=== PATIENT | female | born 1955 | race Caucasian/White ===

== ENCOUNTER 2016-07-30 13:02 | Inpatient (IN) | payer OTHER ==
[~2016-07-30] VITALS: Ht 165.1 cm; Wt 65.9 kg
[~2016-07-30 13:02] MED LIST: LEVO125T75 PO; LISI20TA11 PO; MET25 PO; METF-388 PO
[2016-07-30] MEDS ORDERED: ASPIRIN 325 MG TAB PO STA (13:31)
[2016-07-30] MEDS ORDERED: morphine 2 MG INJ IV STA (13:31)
[2016-07-30] MEDS ORDERED: ONDANSETRON 4 MG INJ IV STA (13:31)
[2016-07-30 14:01] LABS: BASOPHILS % 0.2 % (0.0-2.0); EOSINOPHILS # 0.1 10^3/ul (0.0-0.5); EOSINOPHILS % 1.1 % (0.0-7.0); HEMATOCRIT 38.2 % (37.0-47.0); HEMOGLOBIN 12.8 g/dl (12.0-16.0); MEAN CORPUSCULAR HEMOGLOBIN 28.9 pg (29.0-33.0); MEAN CORPUSCULAR HGB CONC 33.6 g/dl (32.0-37.0); MEAN CORPUSCULAR VOLUME 86.1 fl (82.0-101.0); MEAN PLATELET VOLUME 8.3 fl (7.4-10.4); MONOCYTE # 0.5 10^3/ul (0.3-0.9); MONOCYTES % 8.8 % (0.0-11.0); NEUTROPHIL # 4.1 10^3/ul (1.6-7.5); NEUTROPHILS % 71.9 % (39.0-77.0); PLATELET COUNT 296 10^3/UL (140-440); RED BLOOD COUNT 4.43 10^6/ul (4.20-5.40); RED CELL DISTRIBUTION WIDTH 19.7 % (11.5-14.5); UNCORRECTED WBC 5.8 10^3/ul (4.8-10.8); WHITE BLOOD COUNT 5.8 10^3/ul (4.8-10.8)
[2016-07-30 14:04] LABS: CONDITION 1; LH ANALYZER COMMENTS 1
--- NOTE | 2016-07-30 14:04 | RADRPT ---
PROCEDURE: XR Chest. CLINICAL INDICATION: Shortness of breath. TECHNIQUE: Single frontal chest x-ray. COMPARISON: 10/29/2015 FINDINGS: The lungs are clear. No focal opacification is seen. No pneumothorax or pleural effusion is seen. The cardiomediastinal silhouette is unremarkable. There is a mild thoracic dextroscoliosis. Other serra, the osseous structures are grossly unremarkable. IMPRESSION: No evidence of acute cardiopulmonary disease. RPTAT: JJ .Thomas Boston MD, Date Time Electronically viewed and signed by .Thomas Boston MD, on 07/30/2016 14:03 .A/
[2016-07-30 14:10] LABS: ALBUMIN 4.4 g/dl (3.3-4.9); CHLORIDE 98 mmol/L (97-110)
[2016-07-30 14:11] LABS: POTASSIUM 3.9 mmol/L (3.5-5.1); SODIUM 138 mmol/L (135-144)
[2016-07-30 14:13] LABS: ALANINE AMINOTRANSFERASE 21 IU/L (13-69); ALBUMIN/GLOBULIN RATIO 1.25; ALKALINE PHOSPHATASE 86 IU/L (42-121); ANION GAP 19 (8-16); ASPARTATE AMINO TRANSFERASE 17 IU/L (15-46); BILIRUBIN,INDIRECT 0.1 mg/dl (0-1.1); BILIRUBIN,TOTAL 0.1 mg/dl (0.2-1.3); BLOOD UREA NITROGEN 17 mg/dl (7-20); CARBON DIOXIDE 25 mmol/L (21-31); TOTAL PROTEIN 7.9 g/dl (6.1-8.1)
[2016-07-30 14:14] LABS: CALCIUM 9.7 mg/dl (8.4-10.2); GLUCOSE 138 mg/dl (70-220)
[2016-07-30 14:17] LABS: CREATINE KINASE 60 IU/L (23-200)
--- NOTE | 2016-07-30 14:20 | RADRPT ---
PROCEDURE: CT Brain without contrast. CLINICAL INDICATION: Dizziness and leaning to the left when walking. TECHNIQUE: A CT of the brain was performed on a [address] scanner utilizing axial sections from the skull base through the vertex without contrast. Coronal and sagittal reformatted i mages were obtained from the axial source images. Images were reviewed on a high-resolution PACS wor kstation. Exam CTDI = 44.88 mGy and the DLP equals 630.2 mGy-cm. One or the following dose reduction techniques were used: -Automated exposure control. -Adjustment of the mA and/or KV according to patient's size. -Use of iterative reconstruction technique. COMPARISON: None available. FINDINGS: The ventricles and cortical sulci are prominent consistent with mild age related volume loss. There are patchy areas of low attenuation within the periventricular and subcortical white matter consiste nt with minimal chronic ischemic changes secondary to small vessel disease. There is no mass effect or midline shift. There is no intracranial hemorrhage or abnormal extra-axial collection. There are a few punctate calcifications along the cortex primarily in the midline anteriorly and along the rosie face of the superior aspect of the left occipital lobe. 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 There are atherosclerotic calcifications within bilateral distal internal carotid ar teries. The calvarium is intact. There is no evidence of fracture. The frontal, ethmoid, maxillary and left sphenoid sinuses appear normal. Bilateral mastoid air cells are clear. IMPRESSION: 1. No acute intracranial abnormality identified. 2. Mild age related volume loss and minimal chronic ischemic white matter disease. 3. Cerebral atherosclerosis. 4. 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 RPTAT:AACC Physician Juan Diego Date Time Electronically viewed and signed by Physician Juan Diego on 07/30/2016 14:20 /
[2016-07-30 14:22] LABS: CK-MB 0.53 ng/ml (0.0-2.4)
[2016-07-30 14:25] LABS: TROPONIN-I < 0.010 ng/ml (0.00-0.12)
[2016-07-30 14:26] LABS: TROPONIN-I < 0.010 ng/ml (0.00-0.12)
--- NOTE | 2016-07-30 15:20 | ERA ---
ER Documentation Chief Complaint Date/Time DATE: 07/30/16 TIME: 15:14 Chief Complaint dizzy since yest, chest heaviness today HPI Patient is a 60-year-old female who reports feeling dizzy and "off balance" since yesterday. She states she feels like she is walking more towards the left side. Today she developed this chest pressure in the center of her chest which is radiating down her left arm and making her hands feel numb. The chest pressure has been constant all day. It does make her feel little short of breath. She denies any nausea, vomiting, neck pain, fever, chest congestion, rhinorrhea, sore throat, or otalgia. She denies any chest trauma, abdominal pain, swelling of her feet or hands. 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 Nothing seems to make the symptoms better or worse. The remainder of the systems are negative. ROS All systems reviewed and are negative except as per history of present illness. Medications Home Meds Reported Medications Metformin Hcl* (Metformin Hcl*) 1,000 Mg Tablet, 1000 MG PO BID, #30 TAB 10/21/15 Methotrexate* (Methotrexate*) 2.5 Mg Tab, 2.5 MG PO ONCE A WEEK , TAB 01/21/15 Levothyroxine Sodium* (Levothyroxine Sodium*) 125 Mcg Tablet, 125 MCG PO AC BREAKFAST, TAB 01/21/15 Lisinopril* (Lisinopril*) 20 Mg Tablet, 20 MG PO DAILY, TAB 01/21/15 Allergies Allergies: Coded Allergies: No Known Allergy (Unverified , 01/27/15) PMhx/Soc History of Surgery: Yes (, Appendectomy, wound debridement) Anesthesia Reaction: No Hx Neurological Disorder: No Hx Respiratory Disorders: No Hx Cardiac Disorders: Yes (HTN, HIGH CHOLESTEROL) Hx Psychiatric Problems: No Hx Miscellaneous Medical Probl: Yes (HTN, DM, hypothyroidism, RA) Hx Alcohol Use: No Hx Substance Use: No Hx Tobacco Use: No Smoking Status: Never smoker FmHx Family History: diabetes Physical Exam Vitals Vital Signs Date Time Temp Pulse Resp B/P Pulse Ox O2 Delivery O2 Flow Rate FiO2 07/30/16 14:22 68 22 122/70 100 Room Air 72 132/60 84 127/81 07/30/16 14:21 Nasal Cannula 2 07/30/16 13:40 98.7 76 14 142/69 100 Room Air 07/30/16 13:14 98.7 88 20 152/67 100 Physical Exam Const: Well-developed well-nourished female sitting on the bed in no acute distress Head: Atraumatic normocephalic Eyes: Normal Conjunctiva ENT: Normal External Ears, Nose and Mouth. Neck: Full range of motion..~ No meningismus. Resp: Clear to auscultation bilaterally Cardio: Regular rate and rhythm, no murmurs no tenderness to palpation in the chest wall Abd: Soft, non tender, non distended. Normal bowel sounds Skin: No petechiae or rashes Back: No midline or flank tenderness Ext: No cyanosis, or edema no tenderness palpation and calf negative Homans sign Neur: Awake and alert oriented 3, cranial nerves II through XII are intact, motor strength is 5 out of 5 in both upper and lower extremities, finger to nose is intact bilaterally and equal, GCS equals 15, gait was normal Psych: Normal Mood and Affect Result Diagram: 07/30/16 1338 07/30/16 1338 Results 24 hrs Laboratory Tests Test 07/30/16 13:38 07/30/16 13:41 Alanine Aminotransferase (ALT/SGPT) 21IU/L Albumin 4.4g/dl Albumin/Globulin Ratio 1.25 Alkaline Phosphatase 86IU/L Anion Gap 19 Aspartate Amino Transf (AST/SGOT) 17IU/L Basophils # 0.010^3/ul Basophils % 0.2% Blood Morphology Comment Blood Urea Nitrogen 17mg/dl Calcium Level 9.7mg/dl Carbon Dioxide Level 25mmol/L Chloride Level 98mmol/L Creatine Kinase 60IU/L Creatine Kinase Index 0.9 Creatinine 0.60mg/dl Creatinine Kinase MB (Mass) 0.53ng/ml Direct Bilirubin 0.00mg/dl Eosinophils # 0.110^3/ul Eosinophils % 1.1% Globulin 3.50g/dl Glucose Level 138mg/dl Hematocrit 38.2% Hemoglobin 12.8g/dl Indirect Bilirubin 0.1mg/dl Lymphocytes # 1.010^3/ul Lymphocytes % 18.0% Mean Corpuscular Hemoglobin 28.9pg Mean Corpuscular Hemoglobin Concent 33.6g/dl Mean Corpuscular Volume 86.1fl Mean Platelet Volume 8.3fl Monocytes # 0.510^3/ul Monocytes % 8.8% Neutrophils # 4.110^3/ul Neutrophils % 71.9% Nucleated Red Blood Cells # 0.010^3/ul Nucleated Red Blood Cells % 0.0/100WBC Platelet Count 95829^3/UL Potassium Level 3.9mmol/L Red Blood Count 4.4310^6/ul Red Cell Distribution Width 19.7% Sodium Level 138mmol/L Total Bilirubin 0.1mg/dl Total Protein 7.9g/dl Troponin I < 0.010ng/ml White Blood Count 5.810^3/ul Bedside Glucose 139mg/dL Current Medications Medications (Trade) Dose Ordered Sig/Colleen Route PRN Reason Start Time Stop Time Status Last Admin Dose Admin Aspirin (Aspirin) 325 mg ONCE STAT PO 07/30/16 13:31 07/30/16 13:34 DC 07/30/16 13:55 Morphine Sulfate (morphine) 2 mg ONCE STAT IV 07/30/16 13:31 07/30/16 13:34 DC 07/30/16 13:55 Ondansetron HCl (Zofran Inj) 4 mg ONCE STAT IV 07/30/16 13:31 07/30/16 13:34 DC 07/30/16 13:55 Procedures/MDM Medical decision making: Vertigo, CVA, TIA, chest pain, angina, pneumonia, bronchitis, chest wall pain Chest x-ray did not reveal any acute cardiopulmonary process CT the head did not reveal any acute CVA or bleed EKG: Rate/Rhythm: Normal sinus rhythm at approximately 90 bpm QRS, ST, T-waves: No changes consistent w/ acute ischemia Impression: No evidence of ischemia or arrhythmia 1518: Patient states her chest pressure is improved after the morphine. Neurologically she remains unchanged and intact. 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
[2016-07-30 16:25] LABS: INR 0.92; PROTIME 12.4 Sec (12.2-14.2)
[2016-07-30 16:26] LABS: PARTIAL THROMBOPLASTIN TIME 32.8 Sec (25.0-35.0)
[2016-07-30] MEDS ORDERED: ONDANSETRON 4 MG INJ IV PRN ×2 (16:30→20:30)
[2016-07-30] MEDS ORDERED: ACETAMINOPHEN 325 MG TAB PO PRN (16:30)
[2016-07-30 19:55] LABS: CHOL/HDL RATIO 3.6 RATIO
[2016-07-30 19:59] LABS: IRON 50 ug/dl (35-150)
[2016-07-30] MEDS ORDERED: METHOTREXATE 2.5 MG TAB PO SCH (20:00)
[2016-07-30 20:08] LABS: TOTAL IRON BINDING CAPACITY 362 ug/dl (241-421)
--- NOTE | 2016-07-30 20:14 | HP ---
Date/Time of Note Date/Time of Note DATE: 07/30/16 TIME: 19:50 Assessment/Plan VTE Prophylaxis VTE Prophylaxis Intervention: SCD's Lines/Catheters IV Catheter Type (from Nrsg): Saline Lock Assessment/Plan Assessment/Plan Chest pain r/o ACS- none at present - Cardiology consult- Dr Castañeda notified Dizziness - per cardiology - neurology consult- Dr Inman notified Diabetes Mellitus - Glycemic control - Novolog mild algorithm - Hb AIC am Hypertension Dyslipidemia Hypothyroidism Arthritis- pain PLAN - Admit to hospital - See admission orders. DW Dr MOORE HPI/ROS Admit Date/Time Admit Date/Time Hx of Present Illness dizzy since yest, chest heaviness today HPI Patient is a 60-year-old female who reports feeling dizzy and "off balance" since yesterday. She states she feels like she is walking more towards the left side. Today she developed this chest pressure in the center of her chest which is radiating down her left arm and making her hands feel numb. The chest pressure has been constant all day. It does make her feel little short of breath. She denies any nausea, vomiting, neck pain, fever, chest congestion, rhinorrhea, sore throat, or otalgia. She denies any chest trauma, abdominal pain, swelling of her feet or hands. She says she had chest pain a few years ago and was told that she had "almost had a heart attack." She has not seen a stem roller since that time however. Nothing seems to make the symptoms better or worse. The remainder of the systems are negative. ROS All systems reviewed and are negative except as per history of present illness. Medications Home Meds Reported Medications Metformin Hcl* (Metformin Hcl*) 1,000 Mg Tablet, 1000 MG PO BID, #30 TAB 10/21/15 Methotrexate* (Methotrexate*) 2.5 Mg Tab, 2.5 MG PO ONCE A WEEK , TAB 01/21/15 Levothyroxine Sodium* (Levothyroxine Sodium*) 125 Mcg Tablet, 125 MCG PO AC BREAKFAST, TAB 01/21/15 Lisinopril* (Lisinopril*) 20 Mg Tablet, 20 MG PO DAILY, TAB 01/21/15 Allergies Allergies: Coded Allergies: No Known Allergy (Unverified , 01/27/15) ROS Constitutional: other Eyes: no complaints Respiratory: no complaints Cardiovascular: lightheadedness Gastrointestinal: no complaints Genitourinary: no complaints Musculoskeletal: no complaints Skin: no complaints Neurologic: dizziness Lymphatic: no complaints Psychological: no complaints Immunologic: no complaints PMH/Family/Social Past Medical History PMhx/Soc History of Surgery: Yes (, Appendectomy, wound debridement) Anesthesia Reaction: No Hx Neurological Disorder: No Hx Respiratory Disorders: No Hx Cardiac Disorders: Yes (HTN, HIGH CHOLESTEROL) Hx Psychiatric Problems: No Hx Miscellaneous Medical Probl: Yes (HTN, DM, hypothyroidism, RA) Hx Alcohol Use: No Hx Substance Use: No Hx Tobacco Use: No Smoking Status: Never smoker FmHx Family History: diabetes Past Surgical History Past Surgical Hx: other Social History Smoking Status: Never smoker Exam/Review of Systems Vital Signs Vitals Vital Signs Date Time Temp Pulse Resp B/P Pulse Ox O2 Delivery O2 Flow Rate FiO2 07/30/16 18:50 67 18 130/78 98 Nasal Cannula 2.0 67 07/30/16 18:22 98.7 Exam Constitutional: alert, oriented, well developed Psych: nl mood/affect Head: atraumatic Eyes: EOMI, PERRL, nl sclera ENMT: nl external ears & nose Neck: non-tender Respiratory: clear to auscultation Cardiovascular: nl pulses Gastrointestinal: non-tender, soft Genitourinary - Female: nl external genitalia Musculoskeletal: nl extremities to inspection Extremities: normal pulses Neurological: nl mental status, nl speech Skin: nl turgor Lymph: nontender Labs Result Diagram: 07/30/16 1338 07/30/16 1338 HEATH ZELAYA Jul 30, 2016 20:04
[2016-07-30] MEDS: INSULIN ASPART [NOVOLOG] 3 ML PEN SC SCH (21:00)
[2016-07-30] MEDS ORDERED: GLUCOSE GEL 15 GRAM TUBE BUCCAL PRN (21:00)
[2016-07-30] MEDS ORDERED: GLUCAGON 1 MG INJ IM PRN (21:00)
[2016-07-30] MEDS ORDERED: DEXTROSE 50% 50 ML SYRINGE IV PRN ×2 (21:00)
[2016-07-30] MEDS ORDERED: GLUCOSE GEL 15 GRAM TUBE PO PRN ×2 (21:00)
[2016-07-30] MEDS: SOD CHLORIDE 0.45% 1,000 ML IV SCH (21:19)
[2016-07-30] MEDS ORDERED: PANTOPRAZOLE 40 MG INJ IV ONE (21:30)
[2016-07-30] MEDS: DOCUSATE SODIUM 100 MG CAP PO SCH (21:40)
--- NOTE | 2016-07-30 21:40 | RADRPT ---
PROCEDURE: US Carotids. CLINICAL INDICATION: bruit , dizziness TECHNIQUE: Multiple sonographic of the carotid bifurcation region and vertebral arteries were obta ined utilizing morris scale, duplex and color-flow imaging. The images were reviewed on a PACS worksta tion. COMPARISON: No prior studies are available for comparison. FINDINGS: Evaluation of the right carotid bifurcation region reveals no significant calcific atherosclerotic d isease. Evaluation of the left carotid bifurcation region reveals no significant calcific atherosclerotic di sease. There is antegrade flow within the vertebral arteries bilaterally. RIGHT CAROTID MEASUREMENTS: Common Carotid Cdlfyu24.7 (cm/sec) Internal Carotid Artery - .6 (cm/sec) Internal Carotid Artery - mid66.2 (cm/sec) Internal Carotid Artery - .4 (cm/sec) Internal Carotid/Common Carotid1.41 LEFT CAROTID MEASUREMENTS: Common Carotid Klfgvq72.5 (cm/sec) Internal Carotid Artery - xzpfryev46.7 (cm/sec) Internal Carotid Artery - mid74.1 (cm/sec) Internal Carotid Artery - naogzi06.1 (cm/sec) Internal Carotid/Common Carotid1.49 RPTAT: AA IMPRESSION: No evidence for hemodynamically significant stenosis in the bilateral internal carotid arteries - va lidated velocity measurements with angiographic measurements, velocity criteria are extrapolated fro m diameter data as defined by the Society of Radiologists in Ultrasound Consensus Conference Radiolo gy 2003; 229;340-346. This study does indirectly reference the measurement of the distal ICA diamet er as the denominator for stenosis measurement. Normal antegrade flow in the vertebral arteries bilaterally. .Tai Borrego MD, Date Time Electronically viewed and signed by .Tai Borrego MD, MD on 07/30/2016 21:39 .S/
--- NOTE | 2016-07-30 23:02 | RADRPT ---
PROCEDURE: MRI Head without contrast CLINICAL INDICATION: Dizziness TECHNIQUE: Multiplanar multi sequence imaging was obtained through the head including post gadolin ium images. COMPARISON: The CT scan of the head done earlier on the same date. The previous CT was unremarkable except for a small punctate calcification within the medial left po sterior parietal lobe. FINDINGS: The ventricles are normal in size and there is no midline shift. The sulci are mildly prominent. No intracranial bleed, mass, or extra-axial fluid collection is identified. There is a faint vascula r plus over are proximally 7 mm within the right basal ganglia following contrast administration. The brainstem appears unremarkable. There is a scant amount of pituitary tissue at the floor of the sella which is largely filled with CSF. The visualized internal auditory canals appear unremarkable and no mass is seen in either cerebellar pontine angle. There are no findings to suggest acute ischemia. Normal flow void is seen within the central cerebral vasculature. The dural sinuses appear patent. The visualized osseous elements appear unremarkable. The orbits and orbital contents appear unremarkable. The paranasal sinuses and mastoid air cells are well-aerated. IMPRESSION: 1. There is a small postcontrast blush in the right basal ganglia region over a 7 mm area suspiciou s for a small venous angioma. 2. Empty sella. 3. Otherwise, unremarkable MRI of the brain. Physician Abisai Date Time Electronically viewed and signed by Physician Abisai on 07/30/2016 23:02 /
[2016-07-31] VITALS (8 sets, daily range): BP systolic 99–132; BP diastolic 54–63; PULSE 56–73; RESP 18–20; TEMP 98.1; Ht 165.1 cm; Wt 65.9 kg
[2016-07-31 03:54] LABS: BASOPHILS % 0.5 % (0.0-2.0); EOSINOPHILS # 0.1 10^3/ul (0.0-0.5); EOSINOPHILS % 2.1 % (0.0-7.0); HEMATOCRIT 34.7 % (37.0-47.0); HEMOGLOBIN 11.6 g/dl (12.0-16.0); LYMPHOCYTES # 1.3 10^3/ul (0.8-2.9); LYMPHOCYTES % 22.8 % (15.0-51.0); MEAN CORPUSCULAR HEMOGLOBIN 28.8 pg (29.0-33.0); MEAN CORPUSCULAR HGB CONC 33.5 g/dl (32.0-37.0); MEAN CORPUSCULAR VOLUME 85.9 fl (82.0-101.0); MEAN PLATELET VOLUME 8.1 fl (7.4-10.4); MONOCYTE # 0.6 10^3/ul (0.3-0.9); MONOCYTES % 10.5 % (0.0-11.0); NEUTROPHIL # 3.6 10^3/ul (1.6-7.5); NEUTROPHILS % 64.1 % (39.0-77.0); PLATELET COUNT 247 10^3/UL (140-440); RED BLOOD COUNT 4.04 10^6/ul (4.20-5.40); RED CELL DISTRIBUTION WIDTH 19.4 % (11.5-14.5); UNCORRECTED WBC 5.6 10^3/ul (4.8-10.8); WHITE BLOOD COUNT 5.6 10^3/ul (4.8-10.8)
[2016-07-31 04:00] LABS: CONDITION 1; LH ANALYZER COMMENTS 1
[2016-07-31 04:05] LABS: CREATINE KINASE 30 IU/L (23-200)
[2016-07-31 04:06] LABS: POTASSIUM 4.1 mmol/L (3.5-5.1)
[2016-07-31 04:09] LABS: CREATININE 0.7 mg/dl (0.44-1.00)
[2016-07-31 04:16] LABS: CK-MB 0.25 ng/ml (0.0-2.4)
[2016-07-31 04:23] LABS: TROPONIN-I < 0.010 ng/ml (0.00-0.12)
[2016-07-31] MEDS ORDERED: LEVOTHYROXINE 125 MCG TAB PO SCH (07:00)
[2016-07-31] MEDS: INSULIN ASPART [NOVOLOG] 3 ML PEN SC SCH ×4 (08:00→20:35)
[2016-07-31] MEDS ORDERED: ATENOLOL 25 MG TAB PO SCH (09:00)
[2016-07-31] MEDS ORDERED: LISINOPRIL 20 MG TAB PO SCH (09:00)
[2016-07-31] MEDS ORDERED: PANTOPRAZOLE 40 MG INJ IV SCH (09:00)
[2016-07-31] MEDS ORDERED: ASPIRIN (EC) 81 MG TAB PO SCH (09:00)
[2016-07-31] MEDS: DOCUSATE SODIUM 100 MG CAP PO SCH ×2 (12:11→20:33)
[2016-07-31] MEDS: metFORMIN 500 MG TAB PO SCH ×2 (12:12→18:19)
[2016-07-31] MEDS: MECLIZINE 12.5 MG TAB PO SCH ×2 (14:25→20:33)
--- NOTE | 2016-07-31 14:43 | CONS ---
DATE OF ADMISSION: 07/30/2016 DATE OF CONSULTATION: 07/31/2016 NEUROLOGICAL CONSULTATION Thank you, Dr. Frost, for your kind referral for evaluation of dizziness. HISTORY OF PRESENT ILLNESS: The patient is a 60-year-old lady who developed a vertiginous sensation 2 days ago. The vertigo is present initially constantly, but was worse with movements. By now martina tigo is better. She has similar episode of vertigo several years ago. She denies any hearing probl ems, though she does have intermittent left-sided tinnitus which is not a new complaint for her. The patient denies any new weakness, numbness, dysarthria, dysphasia, headache, diplopia. She had C AT scan followed by MRI of the brain. MRI of the brain was done with contrast and shows possible ri ght basal ganglia, small venous angioma, otherwise negative study. Carotid ultrasound was done as w ell, shows no evidence of hemodynamically significant lesions. The patient's labs were normal, CBC, basic metabolic panel, and liver function tests. Cholesterol 188, LDL 96. CURRENT MEDICATIONS: 1. Lisinopril. 2. Pantoprazole. 3. Aspirin. 4. Atenolol. 5. Metformin. 6. Synthroid. 7. Insulin sliding scale. 8. Methotrexate. PAST MEDICAL HISTORY: Significant for diabetes, hypertension, hypothyroidism, arthritis. ALLERGIES: NONE. SOCIAL HISTORY: No alcohol, tobacco, drug use. FAMILY HISTORY: Diabetes. REVIEW OF SYSTEMS: All pertinent positives included in the above history of present illness. PHYSICAL EXAMINATION: VITAL SIGNS: Today 98.0 temperature, 77 pulse, 18 respirations, 117/60 blood pressure. GENERAL: Not in acute distress, lying in bed. HEENT: Normocephalic, atraumatic head. NECK: No carotid bruits. No thyromegaly. LUNGS: Clear to auscultation bilaterally. CARDIAC: Normal cardiac rhythm and sounds. ABDOMEN: Soft, nontender. EXTREMITIES: No cyanosis, clubbing, or edema. NEUROLOGIC: She is awake, alert, and oriented x3 with fluent speech. Cranial nerve examination claire ws intact visual rowe bilaterally. Pupils round, reactive to light from 4 to 2 mm bilaterally. E xtraocular movements intact without nystagmus. Symmetrical face. Preserved facial strength and sen sation. Tongue is in midline. Palate elevates symmetrically. Motor strength examination shows pre served bulk, strength, and tone in all extremities. Sensory examination: Diminution of perception in toe tips which is a longstanding problem, according to the patient. Deep tendon reflexes 1+ uppe r extremities, absent in lower extremities. Downgoing toes bilaterally. Coordination was preserved on [id number]-wb-sezozy testing. No dysmetria or tremor. Gait was not assessed. IMPRESSION: Vertigo with clear positional and movement related components. Similar episodes of vert igo several years ago. Normal MRI of the brain. Symptoms are consistent with benign positional martina tigo. The patient feels vertiginous right now, so I did not perform Argenta-Hallpike maneuver. The brittany ribeiro was taught how to perform Heck-Daroff maneuver as vestibular exercises at home on a daily bas is for at least a couple weeks. I will start her on meclizine, and that should be continued on an a s needed basis. From my perspective, the patient is okay to be discharged home and can follow up in the office in 2 to 4 weeks. Dictated By: ERIKA MILTON/PAU Conf#: [id number] DID#: [id number]
--- NOTE | 2016-07-31 14:46 | RADRPT ---
Echocardiogram Report Patient Name: JOEL HANEY Gender: Female Date: 1955 Study Date: 31-Jul-2016 Nursing Service Director: Elizabeth Sebastian RDCS Location: Ref. Physician: HEATH ZELAYA Quality: Good Procedures: Transthoracic echocardiogram with complete 2D, M-Mode, and doppler examination. Indications: Dizziness. 2D/M Mode Doppler Measurement Value Normal Ranges Measurement Value Normal Ranges LVIDd 2D 4.0 3.5 - 5.6 cm AV Peak Vamsi 1.2 m/sec LVIDs 2D 2.5 2.1 - 4.1 cm AV Peak PG 6.0 mmHg LVPWd 2D 0.9 0.6 - 1.1 cm LVOT Peak Vamsi 0.8 m/sec IVSd 2D 0.7 0.6 - 1.1 cm LVOT Peak PG 2.5 mmHg AoR Diam 2D 2.0 2.0 - 3.7 cm MV E Peak Vamsi 0.5 m/sec EDV 2D 71.6 cm3 MV A Peak Vamsi 0.8 m/sec ESV 2D 15.2 cm3 MV E/A 0.7 LA Dimen 2D 3.4 2.3 - 4.0 cm MV Decel Time 178 msec MV Decel [place] 3 MV E/A 0.7 Findings Left Ventricle: Normal left ventricular systolic function. Normal left ventricular cavity size. Normal left ventricular wall thickness. Ejection fraction is visually estimated at 65 %. Tissue Doppler/Mitral Doppler indices are consistent with impaired relaxation (Stage I diastolic dysfunction). Right Ventricle: Normal right ventricular size. Normal right ventricular systolic function. Left Atrium: The left atrium is normal in size. Right Atrium: The right atrium is normal in size. Mitral Valve: Mitral valve leaflets appear mildly thickened. Trace mitral regurgitation. Aortic Valve: Aortic cusps appear mildly calcified. Trace aortic valve regurgitation. Tricuspid Valve: Normal appearance and function of the tricuspid valve with trace physiologic regurgitation. Pericardium: Normal pericardium with no significant pericardial effusion. Aorta: Normal aortic root. IVC: Normal size and normal respiratory collapse consistent with normal right atrial pressure. Conclusions Normal left ventricular systolic function. Normal left ventricular cavity size. Normal left ventricular wall thickness. Ejection fraction is visually estimated at 65 %. Tissue Doppler/Mitral Doppler indices are consistent with impaired relaxation (Stage I diastolic dysfunction). Normal right ventricular size. Normal right ventricular systolic function. The left atrium is normal in size. The right atrium is normal in size. Mitral valve leaflets appear mildly thickened. Trace mitral regurgitation. Aortic cusps appear mildly calcified. Trace aortic valve regurgitation. Normal appearance and function of the tricuspid valve with trace physiologic regurgitation. Electronically Signed By: Robinson Castañeda 31-Jul-2016 14:46:04 -0800 Patient Name: JOEL HANEY Study Date: 31-Jul-2016 [id number]
--- NOTE | 2016-07-31 14:52 | CONS ---
Date/Time of Note Date/Time of Note DATE: 07/31/16 TIME: 14:49 Assessment/Plan Assessment/Plan Problems: (1) Cellulitis Status: Acute (2) Small bowel obstruction Status: Acute (3) Severe sepsis Status: Acute (4) Hyperglycemia due to type 2 diabetes mellitus Status: Acute (5) Dizziness Status: Acute (6) Diabetes Status: Acute Qualifiers: Qualified Code: E11.9 - Type 2 diabetes mellitus without complication, unspecified prison insulin use status (7) Hyperlipidemia Status: Acute Qualifiers: Qualified Code: E78.2 - Mixed hyperlipidemia (8) Chest pain Status: Acute Qualifiers: Qualified Code: R07.2 - Precordial pain (9) Hypertension Status: Acute Qualifiers: Qualified Code: I10 - Essential hypertension Additional Assessment/Plan Atypical chest pain syndrome Ruled out with acute coronary syndrome troponin is negative echocardiograph is completely normal I would consider PPI and the patient is likely noncardiac etiology Long discussion with the patient patient will go and follow-up as an outpatient may consider stress test as an outpatient no need of inpatient cardiac workup Continue neurology workup and recommendation cardiac standpoint patient can be discharged home Consultation Date/Type/Reason Admit Date/Time Date of Consultation: Jul 31, 2016 Type of Consultation: Interventional cardiac Reason for Consultation Chest pain Hx of Present Illness Patient is a 60-year-old female with no significant cardiac risk factor history who presented with right shoulder pain with some dizziness. Patient admitted for rule out acute coronary syndrome her troponin levels 3 is negative BNP is negative EKG is nonischemic right now patient is on the floor I had a long discussion with the patient patient's symptoms are very atypical in nature had echocardiography done here with ejection fraction of 65% no wall motion abnormality no significant valvular abnormality. Constitutional: no complaints Eyes: no complaints Respiratory: no complaints Cardiovascular: lightheadedness Gastrointestinal: no complaints Genitourinary: no complaints Musculoskeletal: no complaints Skin: no complaints Neurologic: dizziness Lymphatic: no complaints Psychological: nl mood/affect Immunologic: no complaints Past Surgical History Past Surgical Hx: other Social History Smoking Status: Never smoker Exam/Review of Systems Vital Signs Vitals Vital Signs Date Time Temp Pulse Resp B/P Pulse Ox O2 Delivery O2 Flow Rate FiO2 07/31/16 13:06 65 07/31/16 11:08 98.0 18 117/60 100 07/31/16 08:32 Room Air 07/31/16 06:30 2.0 07/30/16 22:14 28 Exam Constitutional: alert, oriented, well developed Psych: nl mood/affect, no complaints Head: atraumatic, normocephalic Eyes: EOMI, PERRL, nl conjunctiva, nl lids, nl sclera ENMT: nl external ears & nose, nl lips & teeth, nl nasal mucosa & septum Neck: non-tender, supple Respiratory: clear to auscultation, normal air movement Cardiovascular: nl pulses, regular rate and rhythm Gastrointestinal: nl liver, spleen, non-tender, soft Musculoskeletal: nl extremities to inspection, nl gait and stance Extremities: normal pulses 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, nl mental status, nl speech, nl strength Skin: nl turgor, No rash or lesions Lymph: nl lymph nodes Results Result Diagram: 07/31/16 0320 07/31/16 0320 Results 24 hrs Laboratory Tests Test 07/30/16 18:35 07/30/16 21:36 07/31/16 03:20 07/31/16 12:06 Cholesterol Level 188 Cholesterol/HDL Ratio 3.6 HDL Cholesterol 52 Iron Level 50 LDL Cholesterol, Calculated 96 Percent Iron Saturation 14 L Total Iron Binding Capacity 362 Triglycerides Level 201 H Bedside Glucose 104 94 Anion Gap 14 Basophils # 0.0 Basophils % 0.5 Blood Morphology Comment Blood Urea Nitrogen 17 Calcium Level 9.0 Carbon Dioxide Level 30 Chloride Level 99 Creatine Kinase 30 Creatine Kinase Index 0.8 Creatinine 0.70 Creatinine Kinase MB (Mass) 0.25 Eosinophils # 0.1 Eosinophils % 2.1 Glucose Level 108 Hematocrit 34.7 L Hemoglobin 11.6 L Lymphocytes # 1.3 Lymphocytes % 22.8 Mean Corpuscular Hemoglobin 28.8 L Mean Corpuscular Hemoglobin Concent 33.5 Mean Corpuscular Volume 85.9 Mean Platelet Volume 8.1 Monocytes # 0.6 Monocytes % 10.5 Neutrophils # 3.6 Neutrophils % 64.1 Nucleated Red Blood Cells # 0.0 Nucleated Red Blood Cells % 0.0 Platelet Count 247 Potassium Level 4.1 Red Blood Count 4.04 L Red Cell Distribution Width 19.4 H Sodium Level 139 Troponin I < 0.010 White Blood Count 5.6 Medications Medications Current Medications Lisinopril (Zestril) 20 mg DAILY PO ; Start 07/31/16 at 09:00 Ondansetron HCl 4 mg 4 mg Q6H PRN IV NAUSEA AND/OR VOMITING; Start 07/30/16 at 20:30 Sodium Chloride (1/2 NS) 1,000 ml @ 50 mls/hr Q20H IV Last administered on 21:19; Admin Dose 50 MLS/HR; Start 07/30/16 at 20:30 Docusate Sodium (Colace) 100 mg BID PO Last administered on 07/31/16 12:11; Admin Dose 100 MG; Start 07/30/16 at 21:00 Pantoprazole (Protonix Iv) 40 mg DAILY IV Last administered on 07/31/16 12:11 ; Admin Dose 40 MG; Start 07/31/16 at 09:00 Aspirin (Halfprin) 81 mg DAILY PO Last administered on 07/31/16 12:11; Admin Dose 81 MG; Start 07/31/16 at 09:00 Atenolol (Tenormin) 25 mg DAILY PO ; Start 07/31/16 at 09:00 Miscellaneous Information 1 ea NOTE XX ; Start 07/30/16 at 21:00 Glucose (Glutose) 15 gm Q15M PRN PO DECREASED GLUCOSE; Start 07/30/16 at 21:00 Glucose (Glutose) 22.5 gm Q15M PRN PO DECREASED GLUCOSE; Start 07/30/16 at 21: 00 Dextrose (D50w Syringe) 25 ml Q15M PRN IV DECREASED GLUCOSE; Start 07/30/16 at 21:00 Dextrose (D50w Syringe) 50 ml Q15M PRN IV DECREASED GLUCOSE; Start 07/30/16 at 21:00 Glucagon (Glucagen) 1 mg Q15M PRN IM DECREASED GLUCOSE; Start 07/30/16 at 21:00 Glucose (Glutose) 15 gm Q15M PRN BUCCAL DECREASED GLUCOSE; Start 07/30/16 at 21 :00 Miscellaneous Information (*Order Clarification Bulletin) MEDICATION REQUIRES CLARIFICATI... Q8H XX ; Start 07/31/16 at 10:00 Meclizine HCl (Antivert) 12.5 mg TID PO Last administered on 07/31/16 14:25; Admin Dose 12.5 MG; Start 07/31/16 at 13:00 Methotrexate (Methotrexate) 2.5 mg Tu@09 PO ; Start 08/04/16 at 09:00 ARIN PEREZ MD Jul 31, 2016 14:51
[2016-07-31] MEDS ORDERED: INFLUENZA VIRUS VACCINE 0.5 ML (DISPENSING) IM* ONE (15:30)
[2016-07-31] MEDS: SOD CHLORIDE 0.45% 1,000 ML IV SCH (16:30)
--- NOTE | 2016-07-31 21:21 | PN ---
DATE: 07/31/2016 SUBJECTIVE: Follow up on 60-year-old female who was admitted with complaints of dizziness and chest pain. The patient with history of diabetes, hypertension, hyperlipidemia, hypothyroidism, and arth ritis. The patient complains of symptoms of dizziness, otherwise denies any nausea, vomiting. OBJECTIVE: VITAL SIGNS: Temperature is 98.3, pulse 77, blood pressure 133/63, respiratory rate 18, oxygen satu ration 97% on room air. GENERAL: Well-developed, well-nourished female in no acute distress. HEENT: Head is atraumatic, normocephalic. Pupils equal, round and reactive to light and accommodat ion. Oral mucosa is pink and moist. NECK: Supple, no cervical lymphadenopathy, no thyromegaly. LUNGS: Clear bilaterally. HEART: Normal S1, S2. No murmurs, gallops, clicks, rubs noted. ABDOMEN: Round, soft, nondistended, nontender. Bowel sounds present. SKIN: There is no rash, petechiae noted. NEUROLOGIC: The patient is awake, alert and oriented x4. No focal deficits noted. Motor strength 5/5 in all extremities. ASSESSMENT AND PLAN: 1. Dizziness, rule out acute coronary syndrome. The patient is status post MRI and CT scan negativ e for any stroke. 2. Benign positional vertigo. Continue patient on meclizine. Dr. Sorto neurology consult appreciated. 3. Chest pain, rule out acute coronary syndrome. The patient awaits evaluation by Dr. Castañeda in card iology consultation. Continue to follow up his recommendations. 4. Diabetes mellitus type 2. Continue to monitor blood sugar. Continue NovoLog. 5. Hypothyroidism. Continue Synthroid. Will check TSH and T4. Will start physical therapy if symptoms resolve and if patient is cleared by consultants and physica l therapy, the patient can be discharged home tomorrow. Dictated By: RAE OWENS [employer] MAID for DENNIS DAWSNO MD SR/NTS Conf#: [id number] DID#: [id number]
[2016-07-31] MEDS ORDERED: MECLIZINE 12.5 MG TAB PO SCH (22:00)
[2016-08-04] MEDS ORDERED: METHOTREXATE 2.5 MG TAB PO SCH (09:00)
== END 2016-07-31 21:58 | disposition home or self-care (01) | DRG 149 ==
LOC: E/R 13:02 → TEL 16:31
PROVIDERS: ADMIT Internal Medicine; ATTEND Internal Medicine
DX: H81.10 Benign paroxysmal vertigo, unspecified ear (principal); E11.65 Type 2 diabetes mellitus with hyperglycemia; I10 Essential (primary) hypertension; E78.5 Hyperlipidemia, unspecified; E03.9 Hypothyroidism, unspecified; M19.90 Unspecified osteoarthritis, unspecified site; R07.89 Other chest pain
CPT/HCPCS: 36415; 70450; 70552; 71010; 80048; 80053; 80061; 82550; 82553; 82962; 83540; 84484; 85025; 85610; 85730; 90686; 93005; 93306; 93880; 96374; 96375; C9113; J1815; J2270; J2405

== ENCOUNTER 2016-10-26 15:19 | Inpatient (IN) | payer OTHER ==
[~2016-10-26] VITALS: Ht 162.6 cm; Wt 65.4 kg
[~2016-10-26 15:19] MED LIST changes: -METF-388 PO; +METF1000 PO
[2016-10-26] MEDS ORDERED: KETOROLAC 30 MG INJ IM STA (17:30)
[2016-10-26 17:48] LABS: URINE BLOOD (Dip) POC Negative (NEGATIVE)
--- NOTE | 2016-10-26 18:11 | RADRPT ---
PROCEDURE: XR Lumbar Spine. CLINICAL INDICATION: Trauma. Pain. TECHNIQUE: Three views of the lumbar spine are available for review COMPARISON: CT abdomen pelvis 10/21/2015 FINDINGS: There is a moderate approximately 50% wedge compression fracture of the L1 vertebral body, not prese nt on 10/21/2015. No other fracture is identified. There is maintenance of height of the remainder of the vertebral bodies. There is a mild levoscoliosis. Alignment is maintained; there is no spondy lolisthesis. Pedicles are intact. Mild diffuse endplate/disk space degenerative changes are identi fied. Bony mineralization is within normal limits. Soft tissues are unremarkable. IMPRESSION: 1. Moderate compression fracture of the L1 vertebral body, new since 10/21/2015. Appearance is yolanda picious for an acute fracture. 2. Mild levoscoliosis. 3. Mild multilevel degenerative changes. RPTAT: HMVK .Claude Bales MD, Date Time Electronically viewed and signed by .Claude Bales MD, on 10/26/2016 18:11 .K/
[2016-10-26] MEDS ORDERED: HYDROCODONE/APAP (5/325) TAB PO ONE (19:00)
--- NOTE | 2016-10-26 19:11 | RADRPT ---
PROCEDURE: CT Lumbar Spine. CLINICAL INDICATION: Low back pain. Trauma TECHNIQUE: The study was performed on a GE [address] scanner. Spiral axial images were obtained through the lumbar spine. Sagittal and coronal reformations were created from the ra w axial data. The images were reviewed on a PACS workstation. The CTDI vol is 17.12 mGy an the DLP i s 441.25 mGy-cm. COMPARISON: No prior studies are available for comparison. FINDINGS: The lumbar lordosis is maintained. A burst fracture of the L1 vertebral body is seen with approxima tely 25-50% height loss. Approximate 5-6 mm of retropulsion of the posterior-superior aspect of the vertebral body is seen. Compromise of the approximate third of the central canal is seen. Hemorrhag e and soft tissue swelling in the adjacent paravertebral soft tissues is seen. The remaining verteb ral body heights are normal. No other acute fracture or subluxation is seen. Multilevel endplate os teophytosis is seen. The remaining paravertebral soft tissues are unremarkable. T12-L1: Vacuum disk phenomena is seen. The disc, central canal, and neuroforamina are otherwise unr emarkable. L1-L2: The disc, central canal, and neuroforamina are unremarkable. L2-L3: The disc, central canal, and neuroforamina are unremarkable. L3-L4: A mild to moderate posterior disk bulge is seen. Ligamentum flavum thickening is seen. Mild central canal stenosis is seen. Moderate right foraminal stenosis and mild to mild left foraminal stenosis is seen. Narrowing of the lateral recesses is noted. L4-L5: Mild disk height loss is seen. A moderate posterior disk bulge is seen. Mild bilateral face t arthropathy is seen. Ligamentum flavum thickening is seen. Narrowing of the lateral recess is no vishal. Moderate central canal stenosis is seen. Moderate bilateral foraminal stenosis is seen. L5-S1: Mild posterior disk height loss is seen. A mild posterior disk bulge is seen. No significan t central canal stenosis is seen. Mild bilateral foraminal stenosis is seen. A 2 mm nonobstructing stone is seen in the lower pole right kidney. IMPRESSION: 1. L1 burst fracture with a approximately 5-6 mm of retropulsion of the posterior-superior aspect o f the vertebral body which compromises approximately 1/3 of the central canal. Further evaluation w ith an MRI of the lumbar spine is recommended. 2. Mild to moderate discogenic disease at L3-4 and L4-5. 3. Mild central canal stenosis at L3-4 with moderate central canal stenosis at L4-5. 4. 2 mm nonobstructing right renal calculus. Results were discussed with Kashmir Green at 10/26/2016 7:06:23 PM RPTAT: HPNM Porfirio Drew Physician Date Time Electronically viewed and signed by Porfirio Drew Physician on 10/26/2016 19:10 /
[2016-10-26 20:45] LABS: ADD SCAN DIFF NO
[2016-10-26 20:47] LABS: BASOPHILS % 0.7 % (0.0-2.0); EOSINOPHILS # 0.1 10^3/ul (0.0-0.5); EOSINOPHILS % 1.2 % (0.0-7.0); HEMATOCRIT 39.7 % (37.0-47.0); HEMOGLOBIN 13.7 g/dl (12.0-16.0); LYMPHOCYTES # 0.9 10^3/ul (0.8-2.9); LYMPHOCYTES % 15.6 % (15.0-51.0); MEAN CORPUSCULAR HEMOGLOBIN 30.6 pg (29.0-33.0); MEAN CORPUSCULAR HGB CONC 34.5 g/dl (32.0-37.0); MEAN CORPUSCULAR VOLUME 88.8 fl (82.0-101.0); MEAN PLATELET VOLUME 9.8 fl (7.4-10.4); MONOCYTE # 0.5 10^3/ul (0.3-0.9); MONOCYTES % 7.9 % (0.0-11.0); NEUTROPHIL # 4.3 10^3/ul (1.6-7.5); NEUTROPHILS % 74.1 % (39.0-77.0); PLATELET COUNT 265 10^3/UL (140-415); RED BLOOD COUNT 4.47 10^6/ul (4.20-5.40); RED CELL DISTRIBUTION WIDTH 12.6 % (11.5-14.5); WHITE BLOOD COUNT 5.8 10^3/ul (4.8-10.8)
[2016-10-26 20:57] LABS: PROTIME 13.2 Sec (12.2-14.2)
[2016-10-26 20:58] VITALS: TEMP 98.7
[2016-10-26 20:58] LABS: PARTIAL THROMBOPLASTIN TIME 35.2 Sec (25.0-35.0)
[2016-10-26] MEDS ORDERED: ACETAMINOPHEN 325 MG TAB PO PRN (21:00)
[2016-10-26] MEDS ORDERED: ONDANSETRON 4 MG INJ IV PRN (21:00)
--- NOTE | 2016-10-26 21:02 | RADRPT ---
PROCEDURE: XR Chest. CLINICAL INDICATION: Cough. TECHNIQUE: Portable AP view of the chest was obtained. COMPARISON: 07/30/2016 FINDINGS: The cardiomediastinal silhouette is within normal limits. The lungs are clear. There is no evidenc e for pleural effusion, pneumothorax or pulmonary vascular congestion. The osseous structures are i ntact with no evidence for acute abnormality. RPTAT:HJJR IMPRESSION: No evidence for acute intrathoracic pathology or change from 07/30/2016. Physician Zane Date Time Electronically viewed and signed by Jluis Kyle Physician on 10/26/2016 21:01 /
[2016-10-26 21:09] LABS: ANION GAP 16 (8-16); BLOOD UREA NITROGEN 16 mg/dl (7-20); CALCIUM 9.6 mg/dl (8.4-10.2); CARBON DIOXIDE 24 mmol/L (21-31); CHLORIDE 100 mmol/L (97-110); CREATININE 0.81 mg/dl (0.44-1.00); GLUCOSE 123 mg/dl (70-220); POTASSIUM 4.3 mmol/L (3.5-5.1); SODIUM 136 mmol/L (135-144)
[2016-10-26 21:23] LABS: TROPONIN-I < 0.012 ng/ml (0.00-0.12)
[2016-10-26] MEDS ORDERED: FOLI-49 PO (21:45)
[2016-10-26] MEDS ORDERED: ASCO500C7 PO (21:46)
[2016-10-26] MEDS ORDERED: HYDR200T39 PO (21:47)
[2016-10-26] MEDS ORDERED: SULF500T45 PO (21:49)
--- NOTE | 2016-10-26 22:48 | RADRPT ---
PROCEDURE: MRI lumbar spine CLINICAL INDICATION: Low back pain and follow-up L1 burst fracture. TECHNIQUE: An MRI of the lumbar spine was performed on a high resolution high definition, 3.0 Tesl a MRI scanner utilizing the following sequences: Sagittal T1 weighted, sagittal and dual echo axial T2 weighted, and sagittal T2 weighted with fat saturation. COMPARISON: CT 10/26/2016 lumbar spine FINDINGS: There is a normal lordosis of the lumbar spine. Again noted is the L1 vertebral body acute burst f racture with approximately 50% vertebral body height loss . The posterior superior vertebral body i s retropulsed 5-6 mm into the spinal canal at the T12-L1 level resulting in a mild stenosis. The re mainder of the vertebral bodies are well preserved. The intervertebral discs demonstrate disk desic cation at the L3-4 through L5-S1 levels. The conus medullaris terminates normally at the T12-L1 le diamond. The visualized paravertebral soft tissues are normal. The uterus appears heterogeneous with m ultiple nodular lesions and recommend additional imaging with pelvic ultrasound or MRI. The specifi c axial levels are as follows: T12 - L1: The intervertebral disk again demonstrates vacuum disk phenomenon at this level. At this disk level the central canal and bilateral subarticular recesses are patent. Mild bilateral neural foraminal stenosis is noted secondary to retropulsion into the spinal canal of the L1 burst fracture . At the pedicular level of L1, retropulsion of the burst fracture is noted approximately 5-6 mm. AP canal dimension at this level is 8 mm. This results in a mild central canal stenosis. L1 - L2: The intervertebral discs is normal. The central canal, subarticular recess and neural for amen are patent. Mild bilateral facet arthropathy and facet effusions are present. L2 - L3: The intervertebral discs is normal. The central canal, subarticular recess and neural for amen are patent. Mild bilateral facet arthropathy is present. L3 - L4: Disk desiccation is present with a mild to moderate broad-based disk bulge measuring 4 mm. Mild bilateral facet arthropathy and ligamentum hypertrophy is present. AP canal dimension is 9 m m. This results in a mild central canal stenosis, normal bilateral lateral recesses and moderate ri ght and mild to moderate left neural foraminal stenosis. L4 - L5: Disk desiccation is present with mild disk space height loss. A moderate 4 mm eccentric b ulge to the left is present. Superimposed on this broad-based bulge is a 4 mm central disk protrusio n. Mild bilateral facet arthropathy and ligamentum hypertrophy is present. AP canal dimension is 7 mm. These findings result in a moderate central canal stenosis, mild bilateral subarticular recess stenosis, and moderate bilateral neural foraminal stenosis. L5 - S1: Disk desiccation is present with a mild broad-based bulge and osteophyte present. A centr al 5 mm disk protrusion is present with an annular tear. Mild bilateral facet arthropathy is presen t. AP canal dimension is 9.8 mm. This results in a mild central canal stenosis, mild bilateral sub articular recess stenosis and mild bilateral neural foraminal stenosis. IMPRESSION: 1. Acute L1 vertebral body burst fracture with approximately 50% vertebral body height loss and mil d retropulsion into the spinal canal. 2. Mild central canal stenosis at the mid L1 vertebral body secondary to retropulsion of burst frac ture as described above. 3. Multilevel broad-based disk bulges at the L3-4 through L5-S1 levels with moderate central canal stenosis at L4-5 and mild at L3-4. 4. Multilevel neural foraminal stenosis at the T12-L1, L3-4 through L5-S1 levels. 5. 4 mm central disk protrusion at L4-5 superimposed on broad-based bulge. 6. Multilevel degenerative facet osteoarthropathy. 7. Uterine enlargement with multiple masses. Recommend follow-up pelvic ultrasound, CT or MRI. RPTAT: HDC .Rosemary Jaramillo MD, Date Time Electronically viewed and signed by .Rosemary Jaramillo MD, on 10/26/2016 22:48 .C/
--- NOTE | 2016-10-26 22:59 | ERA ---
ER Documentation Chief Complaint Date/Time DATE: 10/26/16 TIME: 22:57 Chief Complaint LOWER BACK PAIN X 3 DAYS RADIAITING TO LOWER ABDOMINAL S/P FALL HPI Patient is a 61-year-old female with hypertension and diabetes who presents with back pain. She had a fall 3 days ago. She has pain in the lumbar area. She has been ambulatory but it is painful. She denies incontinence. ROS All systems reviewed and are negative except as per history of present illness. Medications Home Meds Reported Medications Sulfasalazine (Azulfidine) 500 Mg Tab, 500 MG PO Q8, #90 TAB 10/26/16 Hydroxychloroquine Sulfate* (Hydroxychloroquine Sulfate*) 200 Mg Tablet, 200 MG PO BID, TAB 10/26/16 Ascorbic Acid* (Vitamin C*) 500 Mg Capsule.sa, 500 MG PO DAILY, CAP 10/26/16 Folic Acid* (Folic Acid*) 1 Mg Tablet, 1 MG PO DAILY, TAB 10/26/16 Metformin Hcl* (Metformin Hcl*) 1,000 Mg Tablet, 1000 MG PO BID, #30 TAB 10/21/15 Methotrexate* (Methotrexate*) 2.5 Mg Tab, 2.5 MG PO ONCE A WEEK , TAB 01/21/15 Levothyroxine Sodium* (Levothyroxine Sodium*) 125 Mcg Tablet, 125 MCG PO AC BREAKFAST, TAB 01/21/15 Discontinued Reported Medications Lisinopril* (Lisinopril*) 20 Mg Tablet, 20 MG PO DAILY, TAB 01/21/15 Allergies Allergies: Coded Allergies: No Known Allergy (Unverified , 10/26/16) PMhx/Soc History of Surgery: Yes (Colectomy) Anesthesia Reaction: No Hx Neurological Disorder: No Hx Respiratory Disorders: No Hx Cardiac Disorders: Yes (htn, hld, ) Hx Psychiatric Problems: No Hx Miscellaneous Medical Probl: Yes (dm, hypothyroidism, arthritis) Hx Alcohol Use: No Hx Substance Use: No Hx Tobacco Use: No Smoking Status: Never smoker FmHx Family History: diabetes Physical Exam Vitals Vital Signs Date Time Temp Pulse Resp B/P Pulse Ox O2 Delivery O2 Flow Rate FiO2 10/26/16 20:58 98.7 80 19 140/97 97 Room Air 10/26/16 15:36 98.7 61 18 169/76 99 Physical Exam Const: Mild distress secondary to pain, patient is in a wheelchair Head: Atraumatic Eyes: Normal Conjunctiva ENT: Normal External Ears, Nose and Mouth. Neck: Full range of motion..~ No meningismus. Resp: Clear to auscultation bilaterally Cardio: Regular rate and rhythm, no murmurs Abd: Soft, non tender, non distended. Normal bowel sounds Skin: No petechiae or rashes Back: Lumbar tenderness to palpation Ext: No cyanosis, or edema Neur: Awake and alert Psych: Normal Mood and Affect Result Diagram: 10/26/16201910/26/162019 Results 24 hrs Laboratory Tests Test 10/26/16 17:47 10/26/16 20:20 Bedside Urine pH (LAB) 5.5 Bedside Urine Protein (LAB) Negative Bedside Urine Glucose (UA) Negative Bedside Urine Ketones (LAB) 2+ Bedside Urine Blood Negative Bedside Urine Nitrite (LAB) Negative Bedside Urine Leukocyte Esterase (L Trace White Blood Count 5.810^3/ul Red Blood Count 4.4710^6/ul Hemoglobin 13.7g/dl Hematocrit 39.7% Mean Corpuscular Volume 88.8fl Mean Corpuscular Hemoglobin 30.6pg Mean Corpuscular Hemoglobin Concent 34.5g/dl Red Cell Distribution Width 12.6% Platelet Count 66535^3/UL Mean Platelet Volume 9.8fl Neutrophils % 74.1% Lymphocytes % 15.6% Monocytes % 7.9% Eosinophils % 1.2% Basophils % 0.7% Nucleated Red Blood Cells % 0.0/100WBC Neutrophils # 4.310^3/ul Lymphocytes # 0.910^3/ul Monocytes # 0.510^3/ul Eosinophils # 0.110^3/ul Basophils # 0.010^3/ul Nucleated Red Blood Cells # 0.010^3/ul Prothrombin Time 13.2Sec Prothrombin Time Ratio 1.0 INR International Normalized Ratio 1.00 Activated Partial Thromboplast Time 35.2Sec Sodium Level 136mmol/L Potassium Level 4.3mmol/L Chloride Level 100mmol/L Carbon Dioxide Level 24mmol/L Anion Gap 16 Blood Urea Nitrogen 16mg/dl Creatinine 0.81mg/dl Glucose Level 123mg/dl Calcium Level 9.6mg/dl Troponin I < 0.012ng/ml Current Medications Medications (Trade) Dose Ordered Sig/Colleen Route PRN Reason Start Time Stop Time Status Last Admin Dose Admin Ketorolac Tromethamine (Toradol) 30 mg ONCE STAT IM 10/26/16 17:30 10/26/16 17:32 DC 10/26/16 18:30 Acetaminophen/ Hydrocodone Bitart ([place] (5/325)) 1 tab ONCE ONCE PO 10/26/16 19:00 10/26/16 19:01 DC 10/26/16 19:04 Ondansetron HCl (Zofran Inj) 4 mg BRIDGE ORDER PRN IV NAUSEA AND/OR VOMITING 10/26/16 21:00 10/27/16 20:59 Acetaminophen (Tylenol Tab) 650 mg ER BRIDGE PRN PO MILD PAIN/FEVER 10/26/16 21:00 10/27/16 20:59 Procedures/MDM X-ray shows possible lumbar fracture per radiology. CT scan shows L1 burst fracture. MRI shows L1 burst fracture with mild retropulsion. Patient is a 61-year-old female who presents with L1 burst fracture. She had some mild retropulsion into the canal. She will need to be admitted for pain control. The patient was admitted to Dr. Frost as she has been admitted to Dr. Frost in the past. The patient will be admitted to a medical surgical bed. The patient will need IV medicines for pain control. Departure Diagnosis: Primary Impression: Back pain Qualified Code: M54.5 - Acute midline low back pain without sciatica Additional Impression: Burst fracture of lumbar vertebra Qualified Code: S32.001A - Burst fracture of lumbar vertebra, closed, initial encounter Condition: JEANNE Win MD Oct 26, 2016 22:59
[2016-10-26 23:00] VITALS: BP 162/77; PULSE 78; RESP 20; Ht 162.6 cm; Wt 65.4 kg
[2016-10-26 23:24] VITALS: BP 148/74; PULSE 76
[2016-10-27] MEDS ORDERED: GLUCOSE GEL 15 GRAM TUBE BUCCAL PRN (00:30)
[2016-10-27] MEDS ORDERED: GLUCOSE GEL 15 GRAM TUBE PO PRN ×2 (00:30)
[2016-10-27] MEDS ORDERED: DEXTROSE 50% 50 ML SYRINGE IV PRN ×2 (00:30)
[2016-10-27] MEDS ORDERED: GLUCAGON 1 MG INJ IM PRN (00:30)
[2016-10-27] MEDS: morphine 2 MG INJ IV PRN ×3 (00:58→13:37)
[2016-10-27] MEDS: ACCU-CHEK XX SCH (02:00)
[2016-10-27] MEDS ORDERED: ACCU-CHEK XX SCH (02:00)
[2016-10-27 05:05] LABS: ADD SCAN DIFF NO
[2016-10-27 05:08] LABS: BASOPHILS % 0.5 % (0.0-2.0); EOSINOPHILS # 0.1 10^3/ul (0.0-0.5); EOSINOPHILS % 2.7 % (0.0-7.0); HEMATOCRIT 36.1 % (37.0-47.0); HEMOGLOBIN 12.4 g/dl (12.0-16.0); LYMPHOCYTES # 0.8 10^3/ul (0.8-2.9); LYMPHOCYTES % 18.7 % (15.0-51.0); MEAN CORPUSCULAR HEMOGLOBIN 30.5 pg (29.0-33.0); MEAN CORPUSCULAR HGB CONC 34.3 g/dl (32.0-37.0); MEAN CORPUSCULAR VOLUME 88.7 fl (82.0-101.0); MEAN PLATELET VOLUME 9.6 fl (7.4-10.4); MONOCYTE # 0.4 10^3/ul (0.3-0.9); MONOCYTES % 9.3 % (0.0-11.0); NEUTROPHILS % 68.6 % (39.0-77.0); PLATELET COUNT 245 10^3/UL (140-415); RED BLOOD COUNT 4.07 10^6/ul (4.20-5.40); RED CELL DISTRIBUTION WIDTH 12.5 % (11.5-14.5); WHITE BLOOD COUNT 4.4 10^3/ul (4.8-10.8)
[2016-10-27 05:55] LABS: ALBUMIN 4.2 g/dl (3.3-4.9)
[2016-10-27 05:56] LABS: POTASSIUM 3.5 mmol/L (3.5-5.1)
[2016-10-27 06:01] LABS: ALBUMIN/GLOBULIN RATIO 1.16; BILIRUBIN,INDIRECT 0.6 mg/dl (0-1.1); BILIRUBIN,TOTAL 0.6 mg/dl (0.2-1.3); CALCIUM 8.9 mg/dl (8.4-10.2); CREATININE 0.61 mg/dl (0.44-1.00); TOTAL PROTEIN 7.8 g/dl (6.1-8.1)
[2016-10-27 08:03] VITALS: BP 139/74; RESP 18
[2016-10-27] MEDS: ASCORBIC ACID 500 MG TAB PO SCH (08:33)
[2016-10-27] MEDS: FOLIC ACID 1 MG TAB PO SCH (08:34)
[2016-10-27] MEDS: metFORMIN 500 MG TAB PO SCH ×2 (08:34→17:23)
[2016-10-27] MEDS: HYDROXYCHLOROQUINE 200 MG TAB PO SCH ×2 (09:03→20:37)
[2016-10-27] MEDS: LEVOTHYROXINE 125 MCG TAB PO SCH (09:03)
[2016-10-27] MEDS: SULFASALAZINE 500 MG TAB PO SCH ×3 (09:03→20:37)
[2016-10-27] MEDS: INSULIN ASPART [NOVOLOG] 3 ML PEN SC SCH ×4 (09:04→20:37)
--- NOTE | 2016-10-27 16:45 | HP ---
DATE OF ADMISSION: 10/26/2016 CHIEF COMPLAINT: Lower back pain. HISTORY OF PRESENT ILLNESS: The patient is a 61-year-old female well known to me from previous admi ssion. The patient has history of hypertension, diabetes, hypothyroidism and rheumatoid arthritis. The patient was pushing a piece of wood with some boxes on that 3 days ago, lost her balance and fe ll on her lower back. The patient came to the ER with 3 days' history of lower back pain. No repor vishal numbness, tingling in the lower extremities. No reported loss of consciousness. No reported bl adder or bowel incontinence. No reported weakness in any extremity. The patient is able to ambulat e. The patient was seen in the ER and underwent lumbar spine MRI, which revealed acute L1 vertebral body burst fracture with approximately 50% vertebral body loss. The patient also was noted to have multiple degenerative disk disease and mild degenerative changes. The patient also was incidentall y noted to have uterine fibroid, which had been present on a CT scan done in 10/2015 also. The huang ent denies any abdominal pain. No reported recent vaginal bleed. The patient denied any history of chest pain, shortness of breath. No recent history of fever or chills. No history of dysuria or h ematuria. REVIEW OF SYSTEMS: Rest of review of systems unremarkable. PAST MEDICAL HISTORY: As stated above. In addition, the patient has a history of , and al so had drainage of a subcutaneous abscess right lower leg by Dr. Palacios. History of sepsis with par tial small-bowel obstruction, status post lysis of adhesions and umbilical hernia repair, which was an incidental finding. FAMILY HISTORY: Noncontributory. SOCIAL HISTORY: No smoking, no alcohol. PHYSICAL EXAMINATION: GENERAL: The patient is conscious, awake, alert, fairly oriented. VITAL SIGNS: Temperature 98, pulse 86, respirations 18, blood pressure 139/74, O2 saturation 98% on room air. HEENT: Conjunctivae and lids normal. Oropharynx clear. NECK: Supple. No mass, no thyromegaly. CHEST: Fairly clear. No use of accessory muscles. CARDIOVASCULAR: S1, S2 normal, no murmur, gallop, or rub. ABDOMEN: Soft, nondistended, nontender. Bowel sounds plus. EXTREMITIES: No leg edema. NEUROLOGIC: The patient is awake, alert, fairly oriented with no gross focal deficit. LABORATORY DATA: WBC 4.4, hemoglobin 12.4, platelets 245. Chemistry: Sodium 138, potassium 3.5, B UN 14, creatinine 0.6, glucose 100. Hemoglobin A1c is 6.1. IMPRESSION 1. Mechanical fall with acute L1 fracture. 2. Degenerative disk disease and degenerative joint disease in the lumbar spine. 3. Diabetes mellitus. 4. Rheumatoid arthritis. 5. Hypothyroidism. PLAN: The patient admitted on medical floor. The patient will be continued on folic acid, sulfasal azine, Plaquenil, and methotrexate for rheumatoid arthritis. Continue Glucophage for diabetes and s liding scale insulin. The patient will be continued on Synthroid. We will give Tylenol, [place], and morphine for pain control. We will obtain orthopedic consult from Dr. Paige. Further recommendation s will depend on the patient's hospital course. Dictated By: DENNIS HUDSON/PAU Conf#: [id number] DID#: [id number]
[2016-10-27] MEDS: ENOXAPARIN 40 MG/0.4 ML SYG SC SCH (17:19)
[2016-10-27 20:09] VITALS: BP 121/64; RESP 18
[2016-10-27] MEDS: SENNA TAB PO SCH (22:08)
[2016-10-27] MEDS: HYDROCODONE/APAP (5/325) TAB PO PRN (22:08)
[2016-10-28] MEDS: ACCU-CHEK XX SCH (01:09)
[2016-10-28] MEDS: SULFASALAZINE 500 MG TAB PO SCH ×3 (05:05→22:04)
[2016-10-28] MEDS: HYDROCODONE/APAP (5/325) TAB PO PRN ×4 (05:05→22:03)
[2016-10-28] MEDS: LEVOTHYROXINE 125 MCG TAB PO SCH (05:05)
[2016-10-28] MEDS: SENNA TAB PO SCH ×2 (05:05→20:32)
[2016-10-28 07:26] VITALS: BP 131/65; RESP 17
[2016-10-28] MEDS: INSULIN ASPART [NOVOLOG] 3 ML PEN SC SCH ×4 (07:50→20:35)
[2016-10-28] MEDS: FOLIC ACID 1 MG TAB PO SCH (08:48)
[2016-10-28] MEDS: HYDROXYCHLOROQUINE 200 MG TAB PO SCH ×2 (08:48→20:32)
[2016-10-28] MEDS: metFORMIN 500 MG TAB PO SCH ×2 (08:48→17:51)
[2016-10-28] MEDS: ASCORBIC ACID 500 MG TAB PO SCH (08:48)
[2016-10-28] MEDS: ENOXAPARIN 40 MG/0.4 ML SYG SC SCH (08:51)
--- NOTE | 2016-10-28 16:49 | CONS ---
DATE OF ADMISSION: 10/26/2016 DATE OF CONSULTATION: 10/28/2016 ORTHOPEDIC CONSULTATION HISTORY OF PRESENT ILLNESS: The patient is a 61-year-old female who was admitted on 10/26/2016 when she came to emergency room complaining of low back pain. She had a ground level fall about 4 days ago during the course of her work, landing on her buttock. Following the fall, she was experiencing pain involving her back. She was able to ambulate herself; however, her pain has been persistent. Denies any numbness or tingling in the lower extremity. Denies any weakness involving the lower ex tremity. Denies any change in her bladder habit. However, she is experiencing constipation. PHYSICAL EXAMINATION: My examination revealed a 61-year-old female who is sitting up in a chair. S he was able to participate in history taking and physical examination. Deep tendon reflexes were no rmal and equal bilaterally. There were no obvious motor weaknesses or sensory changes involving the lumbosacral spinal nerve. Straight leg raising was negative up to 80 degrees bilaterally. There w as a mild tenderness along with the paravertebral muscle spasm at the thoracolumbar junction. Range of motion of the thoracolumbar junction was limited with pain. CT scan and the MRI scan of the lumbosacral spine revealed a compression fracture somewhat comminute d and depressed with the retroverted protrusion into the spinal canal, compromising up to about 25% of the spinal canal. There was no evidence of any fractures involving the posterior element such as a pedicle or lamina or spinous process. DIAGNOSTIC IMPRESSION: Compression fracture of the vertebral body of L1 with compression up to abou t 50% with mild to moderate retropulsion of the fracture fragments without any signs of radiculopath y. TREATMENT PLAN: 1. Immobilization and protection with C.A.S.H brace (cruciate anterior spinal hyperextension) brace 2. Ambulation with the C.A.S.H. brace with physical therapy. 3. Repeat the x-rays of the lumbosacral spine after ambulation. 4. If the patient can tolerate the ambulation with the brace on and if there are no meaningful medrano ges in the fracture alignment after ambulation, then she can be discharged for further followup care as an outpatient. Dictated By: ALISA ABREU/PAU Conf#: [id number] DID#: [id number]
--- NOTE | 2016-10-28 18:12 | PN ---
DATE: 10/28/2016 SUBJECTIVE: Follow up on acute L1 fracture. The patient continues to have significant back pain al so has been complaining of constipation and will be started on around the clock laxative. Patient d id not have any chest pain or shortness of breath. No reported weakness in lower extremities, no re ported urinary or bowel incontinence. PHYSICAL EXAMINATION: GENERAL: The patient is conscious, awake, alert. VITAL SIGNS: Temperature 98.1, pulse 70, respirations 17, blood pressure 131/65, O2 saturation 97%. PHYSICAL EXAMINATION: HEENT: No eye discharge or redness. Oropharynx clear. NECK: No mass. CHEST: Fairly clear. CARDIOVASCULAR: S1, S2 normal. No murmur. ABDOMEN: Soft, nondistended, nontender. EXTREMITIES: No leg edema. NEUROLOGIC: The patient is awake, alert, fairly oriented with no gross focal deficit. IMPRESSION: 1. Left L1 fracture. 2. Diabetes. 3. Rheumatoid arthritis. 4. Hypothyroidism. PLAN: The patient will be continued on current medication. Will add Mobic 50 mg once a day. Dictated By: DENNIS HUDSON/PAU Conf#: [id number] DID#: [id number]
[2016-10-28] MEDS: MELOXICAM 15 MG TAB PO SCH (18:43)
[2016-10-28] MEDS: BISACODYL (EC) 5 MG TAB PO SCH (18:43)
[2016-10-28 19:35] VITALS: BP 131/67; RESP 18
[2016-10-29] MEDS: ACCU-CHEK XX SCH (02:00)
[2016-10-29] MEDS: SULFASALAZINE 500 MG TAB PO SCH ×3 (05:51→21:57)
[2016-10-29] MEDS: LEVOTHYROXINE 125 MCG TAB PO SCH (05:51)
[2016-10-29] MEDS: HYDROCODONE/APAP (5/325) TAB PO PRN ×5 (05:52→23:32)
[2016-10-29] MEDS: INSULIN ASPART [NOVOLOG] 3 ML PEN SC SCH ×4 (07:50→21:00)
[2016-10-29 08:02] VITALS: BP 139/68; RESP 18
[2016-10-29] MEDS: BISACODYL (EC) 5 MG TAB PO SCH (08:28)
[2016-10-29] MEDS: metFORMIN 500 MG TAB PO SCH ×2 (08:28→17:55)
[2016-10-29] MEDS: HYDROXYCHLOROQUINE 200 MG TAB PO SCH ×2 (08:29→20:51)
[2016-10-29] MEDS: SENNA TAB PO SCH ×2 (08:29→20:50)
[2016-10-29] MEDS: FOLIC ACID 1 MG TAB PO SCH (08:29)
[2016-10-29] MEDS: MELOXICAM 15 MG TAB PO SCH (08:29)
[2016-10-29] MEDS: ASCORBIC ACID 500 MG TAB PO SCH (08:30)
[2016-10-29] MEDS: ENOXAPARIN 40 MG/0.4 ML SYG SC SCH (08:34)
[2016-10-29] MEDS: ONDANSETRON 4 MG INJ IV PRN (14:00)
--- NOTE | 2016-10-29 14:44 | PN ---
Date/Time of Note Date/Time of Note DATE: 10/29/16 TIME: 14:42 Assessment/Plan Lines/Catheters IV Catheter Type (from Nrsg): Saline Lock Urinary Cath still in place: No Assessment/Plan Assessment/Plan 1. Left L1 fracture. - Per ortho - Mobic 50 mg once a day. - fu lumbar X RAY 2. Diabetes. - Glycemic control 3. Rheumatoid arthritis. 4. Hypothyroidism. RAJANI Frost Subjective 24 Hr Interval Summary Free Text/Dictation 14;30- pt is off floor, in radiology for lumbar xray Exam/Review of Systems Vital Signs Vitals Vital Signs Date Time Temp Pulse Resp B/P Pulse Ox O2 Delivery O2 Flow Rate FiO2 10/29/16 08:02 98.1 74 18 139/68 97 10/26/16 23:00 Room Air Intake and Output 10/28/16 10/28/16 10/29/16 15:00 23:00 07:00 Intake Total 600 ml 720 ml Balance 600 ml 720 ml Results Result Diagram: 10/27/16 0450 10/27/16 0450 Results 24 hrs Laboratory Tests Test 10/28/16 17:37 10/28/16 20:34 10/29/16 08:21 10/29/16 11:51 Bedside Glucose 125 163 137 109 Medications Medications Current Medications Morphine Sulfate (morphine) 2 mg Q4H PRN IV PAIN Last administered on 13:37; Admin Dose 2 MG; Start 10/27/16 at 00:00 Ondansetron HCl (Zofran Inj) 4 mg Q6H PRN IV NAUSEA AND/OR VOMITING Last administered on 10/29/16 14:00; Admin Dose 4 MG; Start 10/27/16 at 00:00 Diagnostic Test (Pha) (Accu-Chek) 1 ea 02 XX ; Start 10/27/16 at 02:00 Ascorbic Acid (Vitamin C) 500 mg DAILY PO Last administered on 10/29/16 08:30 ; Admin Dose 500 MG; Start 10/27/16 at 09:00 Folic Acid (Folic Acid) 1 mg DAILY PO Last administered on 10/29/16 08:29; Admin Dose 1 MG; Start 10/27/16 at 09:00 Hydroxychloroquine Sulfate (Plaquenil) 200 mg BID PO Last administered on 08:29; Admin Dose 200 MG; Start 10/27/16 at 09:00 Methotrexate (Methotrexate) 2.5 mg Fr@09 PO ; Start 10/30/16 at 09:00 Sulfasalazine (Azulfidine) 500 mg Q8 PO Last administered on 10/29/16 14:00; Admin Dose 500 MG; Start 10/27/16 at 06:00 Miscellaneous Information 1 ea NOTE XX ; Start 10/27/16 at 00:30 Glucose (Glutose) 15 gm Q15M PRN PO DECREASED GLUCOSE; Start 10/27/16 at 00:30 Glucose (Glutose) 22.5 gm Q15M PRN PO DECREASED GLUCOSE; Start 10/27/16 at 00: 30 Dextrose (D50w Syringe) 25 ml Q15M PRN IV DECREASED GLUCOSE; Start 10/27/16 at 00:30 Dextrose (D50w Syringe) 50 ml Q15M PRN IV DECREASED GLUCOSE; Start 10/27/16 at 00:30 Glucagon (Glucagen) 1 mg Q15M PRN IM DECREASED GLUCOSE; Start 10/27/16 at 00:30 Glucose (Glutose) 15 gm Q15M PRN BUCCAL DECREASED GLUCOSE; Start 10/27/16 at 00 :30 Acetaminophen (Tylenol Tab) 500 mg Q4H PRN PO PAIN AND OR ELEVATED TEMP; Start 10/27/16 at 16:30 Acetaminophen/ Hydrocodone Bitart ([place] (5/325)) 1 tab Q4H PRN PO PAIN LEVEL 4 -6 Last administered on 10/29/16 14:00; Admin Dose 1 TAB; Start 10/27/16 at 16: 30 Enoxaparin Sodium (Lovenox) 40 mg DAILY SC Last administered on 10/29/16 08:34 ; Admin Dose 40 MG; Start 10/27/16 at 16:30 Senna (Senokot) 2 tab BID PO Last administered on 10/29/16 08:29; Admin Dose 2 TAB; Start 10/27/16 at 21:00 Bisacodyl (Dulcolax) 5 mg DAILY PO Last administered on 10/29/16 08:28; Admin Dose 5 MG; Start 10/28/16 at 18:00 Meloxicam (Mobic) 15 mg DAILY PO Last administered on 10/29/16 08:29; Admin Dose 15 MG; Start 10/28/16 at 18:30 HEATH ZELAYA Oct 29, 2016 14:44
--- NOTE | 2016-10-29 17:14 | RADRPT ---
PROCEDURE: XR Lumbar Spine. CLINICAL INDICATION: Back pain. TECHNIQUE: Three views. AP, lateral and cone-down lateral view of the lumbar spine were obtained. COMPARISON: 10/26/2016. FINDINGS: There is a moderate approximately 50% wedge compression fracture of the L1 vertebral body, unchanged from 10/26/2016. No other fracture is identified. There is maintenance of height of the remainder o f the vertebral bodies. There is a mild levoscoliosis. Alignment is maintained; there is no spondylo listhesis. Pedicles are intact. Mild diffuse endplate/disk space degenerative changes are identified . Bony mineralization is within normal limits. Soft tissues are unremarkable. IMPRESSION: 1. Approximately a 50% wedge compression fracture of L1 vertebral body, similar to the prior study from 10/26/2016. 2. Mild levoscoliosis. 3. Mild degenerative changes throughout. 4. No other new abnormality. RPTAT: QQ .Kashmir Pollack MD, MD Date Time Electronically viewed and signed by .Kashmir Pollack MD, on 10/29/2016 17:14 .R/
--- NOTE | 2016-10-29 17:15 | RADRPT ---
PROCEDURE: XR Sacrum and Coccyx. CLINICAL INDICATION: Sacrum and coccyx pain. TECHNIQUE: 3 views. AP, AP oblique, and lateral views of the sacrum and coccyx were performed. COMPARISON: No prior studies are available for comparison. FINDINGS: There is normal sacral and coccygeal mineralization and alignment. No fracture or subluxation is see n. The sacroiliac joints appear normal. The soft tissues are unremarkable. IMPRESSION: 1. Unremarkable images of the sacrum and coccyx. RPTAT: QQ .Kashmir Pollack MD, MD Date Time Electronically viewed and signed by .Kashmir Pollack MD, on 10/29/2016 17:15 .R/
[2016-10-29] MEDS: LACTULOSE 30ML CUP PO SCH ×2 (18:00→23:33)
[2016-10-29 19:18] VITALS: BP 179/84; RESP 18
[2016-10-30] MEDS: ACCU-CHEK XX SCH (02:00)
[2016-10-30] MEDS: HYDROCODONE/APAP (5/325) TAB PO PRN ×3 (04:05→21:41)
[2016-10-30] MEDS: SULFASALAZINE 500 MG TAB PO SCH ×3 (06:32→21:42)
[2016-10-30] MEDS: LACTULOSE 30ML CUP PO SCH ×3 (06:32→17:34)
[2016-10-30] MEDS: LEVOTHYROXINE 125 MCG TAB PO SCH (06:32)
[2016-10-30 07:00] VITALS: BP 193/81; RESP 18
[2016-10-30] MEDS: INSULIN ASPART [NOVOLOG] 3 ML PEN SC SCH ×4 (07:50→21:00)
[2016-10-30] MEDS: morphine 2 MG INJ IV PRN (08:24)
[2016-10-30] MEDS: ASCORBIC ACID 500 MG TAB PO SCH (08:27)
[2016-10-30] MEDS: SENNA TAB PO SCH ×2 (08:27→21:41)
[2016-10-30] MEDS: HYDROXYCHLOROQUINE 200 MG TAB PO SCH ×2 (08:27→21:42)
[2016-10-30] MEDS: FOLIC ACID 1 MG TAB PO SCH (08:27)
[2016-10-30] MEDS: BISACODYL (EC) 5 MG TAB PO SCH (08:27)
[2016-10-30] MEDS: MELOXICAM 15 MG TAB PO SCH (08:28)
[2016-10-30] MEDS: METHOTREXATE 2.5 MG TAB PO SCH (08:29)
[2016-10-30] MEDS: metFORMIN 500 MG TAB PO SCH ×2 (08:32→17:34)
[2016-10-30] MEDS: ENOXAPARIN 40 MG/0.4 ML SYG SC SCH (08:37)
[2016-10-30 09:14] VITALS: BP 137/71; PULSE 80
--- NOTE | 2016-10-30 15:53 | PN ---
Date/Time of Note Date/Time of Note DATE: 10/30/16 TIME: 15:49 Assessment/Plan VTE Prophylaxis VTE Prophylaxis Intervention: other Lines/Catheters IV Catheter Type (from Nrsg): Saline Lock Urinary Cath still in place: No Assessment/Plan Assessment/Plan 1. Left L1 fracture. - Per ortho- no surgical intervention needed - Mobic 50 mg once a day. 2. Diabetes. - Glycemic control 3. Rheumatoid arthritis. - On Methotrexate 4. Hypothyroidism. - synthyroid 125 mcg RAJNAI Frost Subjective 24 Hr Interval Summary Free Text/Dictation Nad, up in chair, feels better, per patient she is able to walk to bathroom using her walker, back brace noted, seems comfortable. No surgical intervention needed per ortho. dw staff. Eyes: no complaints ENT: no complaints Respiratory: no complaints Cardiovascular: no complaints Gastrointestinal: no complaints Genitourinary: no complaints Musculoskeletal: back pain Skin: no complaints Neurologic: no complaints Endocrine: no complaints Lymphatic: no complaints Exam/Review of Systems Vital Signs Vitals Vital Signs Date Time Temp Pulse Resp B/P Pulse Ox O2 Delivery O2 Flow Rate FiO2 10/30/16 09:14 80 137/71 10/30/16 07:00 98.2 18 98 10/26/16 23:00 Room Air Intake and Output 10/29/16 10/29/16 10/30/16 15:00 23:00 07:00 Intake Total 700 ml 480 ml Balance 700 ml 480 ml Exam Constitutional: alert, oriented, well developed Psych: nl mood/affect Head: atraumatic Eyes: EOMI ENMT: nl external ears & nose Neck: non-tender Respiratory: clear to auscultation Cardiovascular: nl pulses Gastrointestinal: non-tender, soft Musculoskeletal: nl extremities to inspection, other (back brace noted- intact. patient seems comfortable.) Extremities: normal pulses Neurological: nl mental status, nl speech Skin: nl turgor Lymph: nontender Results Result Diagram: 10/27/1644910/27/16449 Results 24 hrs Laboratory Tests Test 10/29/16 18:40 10/29/16 20:58 10/30/16 07:51 10/30/16 11:35 Bedside Glucose 175 131 116 116 Medications Medications Current Medications Morphine Sulfate (morphine) 2 mg Q4H PRN IV PAIN Last administered on t 08:24; Admin Dose 2 MG; Start 10/27/16 at 00:00 Ondansetron HCl (Zofran Inj) 4 mg Q6H PRN IV NAUSEA AND/OR VOMITING Last administered on 10/29/16 14:00; Admin Dose 4 MG; Start 10/27/16 at 00:00 Diagnostic Test (Pha) (Accu-Chek) 1 ea 02 XX ; Start 10/27/16 at 02:00 Ascorbic Acid (Vitamin C) 500 mg DAILY PO Last administered on 10/30/16 08:27 ; Admin Dose 500 MG; Start 10/27/16 at 09:00 Folic Acid (Folic Acid) 1 mg DAILY PO Last administered on 10/30/16 08:27; Admin Dose 1 MG; Start 10/27/16 at 09:00 Hydroxychloroquine Sulfate (Plaquenil) 200 mg BID PO Last administered on 08:27; Admin Dose 200 MG; Start 10/27/16 at 09:00 Methotrexate (Methotrexate) 2.5 mg Fr@09 PO Last administered on 10/30/16 08: 29; Admin Dose 2.5 MG; Start 10/30/16 at 09:00 Sulfasalazine (Azulfidine) 500 mg Q8 PO Last administered on 10/30/16 15:47; Admin Dose 500 MG; Start 10/27/16 at 06:00 Miscellaneous Information 1 ea NOTE XX ; Start 10/27/16 at 00:30 Glucose (Glutose) 15 gm Q15M PRN PO DECREASED GLUCOSE; Start 10/27/16 at 00:30 Glucose (Glutose) 22.5 gm Q15M PRN PO DECREASED GLUCOSE; Start 10/27/16 at 00: 30 Dextrose (D50w Syringe) 25 ml Q15M PRN IV DECREASED GLUCOSE; Start 10/27/16 at 00:30 Dextrose (D50w Syringe) 50 ml Q15M PRN IV DECREASED GLUCOSE; Start 10/27/16 at 00:30 Glucagon (Glucagen) 1 mg Q15M PRN IM DECREASED GLUCOSE; Start 10/27/16 at 00:30 Glucose (Glutose) 15 gm Q15M PRN BUCCAL DECREASED GLUCOSE; Start 10/27/16 at 00 :30 Acetaminophen (Tylenol Tab) 500 mg Q4H PRN PO PAIN AND OR ELEVATED TEMP; Start 10/27/16 at 16:30 Acetaminophen/ Hydrocodone Bitart ([place] (5/325)) 1 tab Q4H PRN PO PAIN LEVEL 4 -6 Last administered on 10/30/16 15:47; Admin Dose 1 TAB; Start 10/27/16 at 16: 30 Enoxaparin Sodium (Lovenox) 40 mg DAILY SC Last administered on 10/30/16 08:37 ; Admin Dose 40 MG; Start 10/27/16 at 16:30 Senna (Senokot) 2 tab BID PO Last administered on 10/30/16 08:27; Admin Dose 2 TAB; Start 10/27/16 at 21:00 Bisacodyl (Dulcolax) 5 mg DAILY PO Last administered on 10/30/16 08:27; Admin Dose 5 MG; Start 10/28/16 at 18:00 Meloxicam (Mobic) 15 mg DAILY PO Last administered on 10/30/16 08:28; Admin Dose 15 MG; Start 10/28/16 at 18:30 Lactulose (Enulose) 20 gm Q6 PO Last administered on 10/30/16 11:51; Admin Dose 20 GM; Start 10/29/16 at 18:00 HEATH ZELAYA Oct 30, 2016 15:53
[2016-10-30 19:57] VITALS: BP 132/69; RESP 18
[2016-10-31] MEDS: ACCU-CHEK XX SCH (02:00)
[2016-10-31 05:50] LABS: ADD SCAN DIFF NO
[2016-10-31 05:53] LABS: BASOPHILS % 0.5 % (0.0-2.0); EOSINOPHILS # 0.1 10^3/ul (0.0-0.5); EOSINOPHILS % 3.4 % (0.0-7.0); HEMOGLOBIN 10.9 g/dl (12.0-16.0); LYMPHOCYTES % 25.5 % (15.0-51.0); MEAN CORPUSCULAR HGB CONC 34.1 g/dl (32.0-37.0); MEAN CORPUSCULAR VOLUME 88.2 fl (82.0-101.0); MEAN PLATELET VOLUME 9.9 fl (7.4-10.4); MONOCYTE # 0.5 10^3/ul (0.3-0.9); MONOCYTES % 11.8 % (0.0-11.0); NEUTROPHIL # 2.2 10^3/ul (1.6-7.5); NEUTROPHILS % 58.5 % (39.0-77.0); PLATELET COUNT 242 10^3/UL (140-415); RED BLOOD COUNT 3.63 10^6/ul (4.20-5.40); RED CELL DISTRIBUTION WIDTH 12.5 % (11.5-14.5); WHITE BLOOD COUNT 3.8 10^3/ul (4.8-10.8)
[2016-10-31 06:16] LABS: CALCIUM 8.8 mg/dl (8.4-10.2); CREATININE 0.57 mg/dl (0.44-1.00); POTASSIUM 4.5 mmol/L (3.5-5.1)
[2016-10-31] MEDS: SULFASALAZINE 500 MG TAB PO SCH ×3 (06:23→21:27)
[2016-10-31] MEDS: LEVOTHYROXINE 125 MCG TAB PO SCH (06:23)
[2016-10-31] MEDS: LACTULOSE 30ML CUP PO SCH ×4 (06:23→17:55)
[2016-10-31] MEDS: HYDROCODONE/APAP (5/325) TAB PO PRN ×5 (06:26→23:59)
[2016-10-31 07:00] VITALS: BP 135/79; RESP 20
[2016-10-31] MEDS: INSULIN ASPART [NOVOLOG] 3 ML PEN SC SCH ×4 (07:50→20:39)
[2016-10-31] MEDS: metFORMIN 500 MG TAB PO SCH ×2 (07:50→17:55)
[2016-10-31] MEDS: ASCORBIC ACID 500 MG TAB PO SCH (09:00)
[2016-10-31] MEDS: BISACODYL (EC) 5 MG TAB PO SCH (09:00)
[2016-10-31] MEDS: SENNA TAB PO SCH ×2 (09:00→20:12)
[2016-10-31] MEDS: FOLIC ACID 1 MG TAB PO SCH (09:00)
[2016-10-31] MEDS: HYDROXYCHLOROQUINE 200 MG TAB PO SCH ×2 (09:00→20:12)
[2016-10-31] MEDS: MELOXICAM 15 MG TAB PO SCH (09:00)
[2016-10-31] MEDS: ENOXAPARIN 40 MG/0.4 ML SYG SC SCH (09:24)
--- NOTE | 2016-10-31 11:41 | PN ---
Date/Time of Note Date/Time of Note DATE: 10/31/16 TIME: 11:40 Assessment/Plan VTE Prophylaxis VTE Prophylaxis Intervention: other Lines/Catheters IV Catheter Type (from Nrsg): Saline Lock Urinary Cath still in place: No Assessment/Plan Chief Complaint/Hosp Course 1. Left L1 fracture. - Per ortho- no surgical intervention needed - Mobic 50 mg once a day. 2. Diabetes. - Glycemic control 3. Rheumatoid arthritis. - On Methotrexate 4. Hypothyroidism. - synthyroid 125 mcg Problems: Subjective 24 Hr Interval Summary Free Text/Dictation Patient still has back pain Exam/Review of Systems Vital Signs Vitals Vital Signs Date Time Temp Pulse Resp B/P Pulse Ox O2 Delivery O2 Flow Rate FiO2 10/31/16 07:00 98.4 77 20 135/79 98 Intake and Output 10/30/16 10/30/16 10/31/16 14:59 22:59 06:59 Intake Total 1020 ml 0 ml Output Total 1200 ml 1110 ml Balance -180 ml -1110 ml Exam Constitutional: well developed Head: atraumatic, normocephalic Neck: supple Respiratory: diminished breath sounds Cardiovascular: regular rate and rhythm Gastrointestinal: non-tender, soft Extremities: normal pulses Results Result Diagram: 10/31/16 0425 10/31/16 0425 Results 24 hrs Laboratory Tests Test 10/30/16 16:26 10/30/16 20:32 10/31/16 04:25 10/31/16 07:53 Bedside Glucose 116 134 102 White Blood Count 3.8 L Red Blood Count 3.63 L Hemoglobin 10.9 L Hematocrit 32.0 L Mean Corpuscular Volume 88.2 Mean Corpuscular Hemoglobin 30.0 Mean Corpuscular Hemoglobin Concent 34.1 Red Cell Distribution Width 12.5 Platelet Count 242 Mean Platelet Volume 9.9 Neutrophils % 58.5 Lymphocytes % 25.5 Monocytes % 11.8 H Eosinophils % 3.4 Basophils % 0.5 Nucleated Red Blood Cells % 0.0 Neutrophils # 2.2 Lymphocytes # 1.0 Monocytes # 0.5 Eosinophils # 0.1 Basophils # 0.0 Nucleated Red Blood Cells # 0.0 Sodium Level 129 L Potassium Level 4.5 Chloride Level 95 L Carbon Dioxide Level 29 Anion Gap 10 Blood Urea Nitrogen 8 Creatinine 0.57 Glucose Level 92 Calcium Level 8.8 Medications Medications Current Medications Morphine Sulfate (morphine) 2 mg Q4H PRN IV PAIN Last administered on 08:24; Admin Dose 2 MG; Start 10/27/16 at 00:00 Ondansetron HCl (Zofran Inj) 4 mg Q6H PRN IV NAUSEA AND/OR VOMITING Last administered on 10/29/16 14:00; Admin Dose 4 MG; Start 10/27/16 at 00:00 Diagnostic Test (Pha) (Accu-Chek) 1 ea 02 XX ; Start 10/27/16 at 02:00 Ascorbic Acid (Vitamin C) 500 mg DAILY PO Last administered on 10/30/16 08:27 ; Admin Dose 500 MG; Start 10/27/16 at 09:00 Folic Acid (Folic Acid) 1 mg DAILY PO Last administered on 10/30/16 08:27; Admin Dose 1 MG; Start 10/27/16 at 09:00 Hydroxychloroquine Sulfate (Plaquenil) 200 mg BID PO Last administered on 21:42; Admin Dose 200 MG; Start 10/27/16 at 09:00 Methotrexate (Methotrexate) 2.5 mg Fr@09 PO Last administered on 10/30/16 08: 29; Admin Dose 2.5 MG; Start 10/30/16 at 09:00 Sulfasalazine (Azulfidine) 500 mg Q8 PO Last administered on 10/31/16 06:23; Admin Dose 500 MG; Start 10/27/16 at 06:00 Miscellaneous Information 1 ea NOTE XX ; Start 10/27/16 at 00:30 Glucose (Glutose) 15 gm Q15M PRN PO DECREASED GLUCOSE; Start 10/27/16 at 00:30 Glucose (Glutose) 22.5 gm Q15M PRN PO DECREASED GLUCOSE; Start 10/27/16 at 00: 30 Dextrose (D50w Syringe) 25 ml Q15M PRN IV DECREASED GLUCOSE; Start 10/27/16 at 00:30 Dextrose (D50w Syringe) 50 ml Q15M PRN IV DECREASED GLUCOSE; Start 10/27/16 at 00:30 Glucagon (Glucagen) 1 mg Q15M PRN IM DECREASED GLUCOSE; Start 10/27/16 at 00:30 Glucose (Glutose) 15 gm Q15M PRN BUCCAL DECREASED GLUCOSE; Start 10/27/16 at 00 :30 Acetaminophen (Tylenol Tab) 500 mg Q4H PRN PO PAIN AND OR ELEVATED TEMP; Start 10/27/16 at 16:30 Acetaminophen/ Hydrocodone Bitart ([place] (5/325)) 1 tab Q4H PRN PO PAIN LEVEL 4 -6 Last administered on 10/31/16 06:26; Admin Dose 1 TAB; Start 10/27/16 at 16: 30 Enoxaparin Sodium (Lovenox) 40 mg DAILY SC Last administered on 10/31/16 09:24 ; Admin Dose 40 MG; Start 10/27/16 at 16:30 Senna (Senokot) 2 tab BID PO Last administered on 10/30/16 21:41; Admin Dose 2 TAB; Start 10/27/16 at 21:00 Bisacodyl (Dulcolax) 5 mg DAILY PO Last administered on 10/30/16 08:27; Admin Dose 5 MG; Start 10/28/16 at 18:00 Meloxicam (Mobic) 15 mg DAILY PO Last administered on 10/30/16 08:28; Admin Dose 15 MG; Start 10/28/16 at 18:30 Lactulose (Enulose) 20 gm Q6 PO Last administered on 10/31/16 06:23; Admin Dose 20 GM; Start 10/29/16 at 18:00 JUANITA JUSTICE Oct 31, 2016 11:41
[2016-10-31 20:40] VITALS: BP 152/85; RESP 20
[2016-11-01] MEDS: ACCU-CHEK XX SCH (02:00)
[2016-11-01] MEDS: HYDROCODONE/APAP (5/325) TAB PO PRN ×3 (04:57→17:56)
[2016-11-01] MEDS: LACTULOSE 30ML CUP PO SCH ×4 (04:57→17:56)
[2016-11-01] MEDS: SULFASALAZINE 500 MG TAB PO SCH ×3 (05:00→21:37)
[2016-11-01] MEDS: INSULIN ASPART [NOVOLOG] 3 ML PEN SC SCH ×4 (07:50→21:00)
[2016-11-01 08:07] VITALS: BP 149/72; RESP 16
[2016-11-01] MEDS: LEVOTHYROXINE 125 MCG TAB PO SCH (09:00)
[2016-11-01] MEDS: MELOXICAM 15 MG TAB PO SCH (09:01)
[2016-11-01] MEDS: BISACODYL (EC) 5 MG TAB PO SCH (09:01)
[2016-11-01] MEDS: FOLIC ACID 1 MG TAB PO SCH (09:01)
[2016-11-01] MEDS: ASCORBIC ACID 500 MG TAB PO SCH (09:01)
[2016-11-01] MEDS: HYDROXYCHLOROQUINE 200 MG TAB PO SCH ×2 (09:01→20:56)
[2016-11-01] MEDS: SENNA TAB PO SCH ×2 (09:01→20:55)
[2016-11-01] MEDS: ENOXAPARIN 40 MG/0.4 ML SYG SC SCH (09:06)
[2016-11-01] MEDS: metFORMIN 500 MG TAB PO SCH ×2 (09:08→17:58)
--- NOTE | 2016-11-01 12:37 | PN ---
Date/Time of Note Date/Time of Note DATE: 11/01/16 TIME: 12:36 Assessment/Plan VTE Prophylaxis VTE Prophylaxis Intervention: other Lines/Catheters IV Catheter Type (from Nrsg): Peripheral IV Urinary Cath still in place: No Assessment/Plan Chief Complaint/Hosp Course 1. Left L1 fracture. - Per ortho- no surgical intervention needed - Mobic 50 mg once a day. 2. Diabetes. - Glycemic control 3. Rheumatoid arthritis. - On Methotrexate 4. Hypothyroidism. - synthyroid 125 mcg Problems: Subjective 24 Hr Interval Summary Free Text/Dictation Back pain is improved Exam/Review of Systems Vital Signs Vitals Vital Signs Date Time Temp Pulse Resp B/P Pulse Ox O2 Delivery O2 Flow Rate FiO2 11/01/16 08:07 98.3 73 16 149/72 98 Intake and Output 10/31/16 10/31/16 11/01/16 15:00 23:00 07:00 Intake Total 1540 ml 540 ml Output Total 1200 ml 800 ml Balance 340 ml -260 ml Exam Constitutional: well developed Head: atraumatic, normocephalic Neck: supple Respiratory: clear to auscultation Cardiovascular: regular rate and rhythm Gastrointestinal: non-tender, soft Extremities: normal pulses Results Result Diagram: 10/31/16 0425 10/31/16 0425 Results 24 hrs Laboratory Tests Test 10/31/16 17:06 10/31/16 20:11 11/01/16 08:43 11/01/16 12:10 Bedside Glucose 94 136 102 132 Medications Medications Current Medications Morphine Sulfate (morphine) 2 mg Q4H PRN IV PAIN Last administered on 08:24; Admin Dose 2 MG; Start 10/27/16 at 00:00 Ondansetron HCl (Zofran Inj) 4 mg Q6H PRN IV NAUSEA AND/OR VOMITING Last administered on 10/29/16 14:00; Admin Dose 4 MG; Start 10/27/16 at 00:00 Diagnostic Test (Pha) (Accu-Chek) 1 ea 02 XX ; Start 10/27/16 at 02:00 Ascorbic Acid (Vitamin C) 500 mg DAILY PO Last administered on 11/01/16 09:01 ; Admin Dose 500 MG; Start 10/27/16 at 09:00 Folic Acid (Folic Acid) 1 mg DAILY PO Last administered on 11/01/16 09:01; Admin Dose 1 MG; Start 10/27/16 at 09:00 Hydroxychloroquine Sulfate (Plaquenil) 200 mg BID PO Last administered on 09:01; Admin Dose 200 MG; Start 10/27/16 at 09:00 Methotrexate (Methotrexate) 2.5 mg Fr@09 PO Last administered on 10/30/16 08: 29; Admin Dose 2.5 MG; Start 10/30/16 at 09:00 Sulfasalazine (Azulfidine) 500 mg Q8 PO Last administered on 11/01/16 05:00; Admin Dose 500 MG; Start 10/27/16 at 06:00 Miscellaneous Information 1 ea NOTE XX ; Start 10/27/16 at 00:30 Glucose (Glutose) 15 gm Q15M PRN PO DECREASED GLUCOSE; Start 10/27/16 at 00:30 Glucose (Glutose) 22.5 gm Q15M PRN PO DECREASED GLUCOSE; Start 10/27/16 at 00: 30 Dextrose (D50w Syringe) 25 ml Q15M PRN IV DECREASED GLUCOSE; Start 10/27/16 at 00:30 Dextrose (D50w Syringe) 50 ml Q15M PRN IV DECREASED GLUCOSE; Start 10/27/16 at 00:30 Glucagon (Glucagen) 1 mg Q15M PRN IM DECREASED GLUCOSE; Start 10/27/16 at 00:30 Glucose (Glutose) 15 gm Q15M PRN BUCCAL DECREASED GLUCOSE; Start 10/27/16 at 00 :30 Acetaminophen (Tylenol Tab) 500 mg Q4H PRN PO PAIN AND OR ELEVATED TEMP; Start 10/27/16 at 16:30 Acetaminophen/ Hydrocodone Bitart ([place] (5/325)) 1 tab Q4H PRN PO PAIN LEVEL 4 -6 Last administered on 11/01/16 09:00; Admin Dose 1 TAB; Start 10/27/16 at 16: 30 Enoxaparin Sodium (Lovenox) 40 mg DAILY SC Last administered on 11/01/16 09:06 ; Admin Dose 40 MG; Start 10/27/16 at 16:30 Senna (Senokot) 2 tab BID PO Last administered on 11/01/16 09:01; Admin Dose 2 TAB; Start 10/27/16 at 21:00 Bisacodyl (Dulcolax) 5 mg DAILY PO Last administered on 11/01/16 09:01; Admin Dose 5 MG; Start 10/28/16 at 18:00 Meloxicam (Mobic) 15 mg DAILY PO Last administered on 11/01/16 09:01; Admin Dose 15 MG; Start 10/28/16 at 18:30 Lactulose (Enulose) 20 gm Q6 PO Last administered on 11/01/16 12:12; Admin Dose 20 GM; Start 10/29/16 at 18:00 JUANITA JUSTICE Nov 01, 2016 12:37
[2016-11-01 19:37] VITALS: BP 161/80; RESP 18
--- NOTE | 2016-11-01 19:52 | PN ---
DATE: 11/01/2016 Has been up and around with OLIVIER brace. Repeated x-rays after ambulation did not show any meaningfu l changes. Pain seems to be tolerable. No new neurologic changes. Okay to be discharged any time from ortho point. Further followup should be done by an orthopedic surgeon who belongs to her medic al group. Dictated By: ALISA CARRANZA MD IK/NTS Conf#: [id number] DID#: [id number] CC: DENNIS DAWSON MD;*EndCC*
[2016-11-02] MEDS: ACCU-CHEK XX SCH (00:03)
[2016-11-02] MEDS: LACTULOSE 30ML CUP PO SCH ×4 (06:00→18:00)
[2016-11-02] MEDS: SULFASALAZINE 500 MG TAB PO SCH ×3 (06:19→21:57)
[2016-11-02] MEDS: LEVOTHYROXINE 125 MCG TAB PO SCH (06:19)
[2016-11-02] MEDS: HYDROCODONE/APAP (5/325) TAB PO PRN (06:21)
[2016-11-02 07:45] VITALS: BP 145/73; RESP 18
[2016-11-02] MEDS: INSULIN ASPART [NOVOLOG] 3 ML PEN SC SCH ×4 (07:50→21:00)
[2016-11-02] MEDS: ASCORBIC ACID 500 MG TAB PO SCH (08:49)
[2016-11-02] MEDS: MELOXICAM 15 MG TAB PO SCH (08:49)
[2016-11-02] MEDS: SENNA TAB PO SCH ×2 (08:49→21:00)
[2016-11-02] MEDS: FOLIC ACID 1 MG TAB PO SCH (08:49)
[2016-11-02] MEDS: BISACODYL (EC) 5 MG TAB PO SCH (08:49)
[2016-11-02] MEDS: HYDROXYCHLOROQUINE 200 MG TAB PO SCH ×2 (08:53→21:00)
[2016-11-02] MEDS: metFORMIN 500 MG TAB PO SCH ×2 (08:53→18:09)
[2016-11-02] MEDS: ENOXAPARIN 40 MG/0.4 ML SYG SC SCH (08:58)
[2016-11-02] MEDS: ONDANSETRON 4 MG INJ IV PRN ×2 (11:38→18:07)
[2016-11-02] MEDS: ACETAMINOPHEN 500 MG TAB PO PRN ×2 (16:43→21:57)
[2016-11-02] MEDS ORDERED: ONDANSETRON 4 MG INJ IV PRN (17:00)
--- NOTE | 2016-11-02 17:02 | PN ---
Date/Time of Note Date/Time of Note DATE: 11/02/16 TIME: 16:54 Assessment/Plan VTE Prophylaxis VTE Prophylaxis Intervention: SCD's Lines/Catheters IV Catheter Type (from Nrsg): Saline Lock Central line still needed: Yes Urinary Cath still in place: No Assessment/Plan Assessment/Plan 1. Compression fracture of the vertebral body of L1. Patient was evaluated by Dr. Paige in orthopedic surgery consultation. Continue OLIVIER brace, continue Mobic. 2. Diabetes. Continue metformin and NovoLog per mild algorithm sliding scale. 3. Rheumatoid arthritis. Continue on methotrexate and Plaquenil. 4. Hypothyroidism. Continue Synthroid. Start continue Protonix for peptic ulcer disease prophylaxis. Further recommendations based on clinical course. Plan of care discussed with Dr. Frost. Subjective 24 Hr Interval Summary Free Text/Dictation Patient's complains of nausea and mild abdominal pain. Will start Protonix and Zofran as needed. Continue physical therapy. Patient still complains of back pain however stated it decreased to compare on admission. Exam/Review of Systems Vital Signs Vitals Vital Signs Date Time Temp Pulse Resp B/P Pulse Ox O2 Delivery O2 Flow Rate FiO2 11/02/16 07:45 98.1 79 18 145/73 98 Intake and Output 11/01/16 11/01/16 11/02/16 15:00 23:00 07:00 Intake Total 800 ml 800 ml Output Total 1100 ml Balance -300 ml 800 ml Exam Constitutional: alert, oriented Psych: no complaints Head: normocephalic Eyes: nl conjunctiva ENMT: nl external ears & nose Neck: non-tender, supple Respiratory: clear to auscultation, normal air movement Cardiovascular: nl pulses, regular rate and rhythm Gastrointestinal: non-tender, soft Genitourinary - Female: nl adnexae Musculoskeletal: nl extremities to inspection Extremities: normal pulses Neurological: ESTIMATOR BINDING II-XII intact Results Result Diagram: 10/31/165 10/31/16 042 Results 24 hrs Laboratory Tests Test 11/01/16 17:45 11/01/16 20:53 11/02/16 08:00 11/02/16 11:31 Bedside Glucose 104 110 94 101 Medications Medications Current Medications Morphine Sulfate (morphine) 2 mg Q4H PRN IV PAIN Last administered on t 08:24; Admin Dose 2 MG; Start 10/27/16 at 00:00 Ondansetron HCl (Zofran Inj) 4 mg Q6H PRN IV NAUSEA AND/OR VOMITING Last administered on 11/02/16 11:38; Admin Dose 4 MG; Start 10/27/16 at 00:00 Diagnostic Test (Pha) (Accu-Chek) 1 ea 02 XX ; Start 10/27/16 at 02:00 Ascorbic Acid (Vitamin C) 500 mg DAILY PO Last administered on 11/02/16 08:49 ; Admin Dose 500 MG; Start 10/27/16 at 09:00 Folic Acid (Folic Acid) 1 mg DAILY PO Last administered on 11/02/16 08:49; Admin Dose 1 MG; Start 10/27/16 at 09:00 Hydroxychloroquine Sulfate (Plaquenil) 200 mg BID PO Last administered on 08:53; Admin Dose 200 MG; Start 10/27/16 at 09:00 Methotrexate (Methotrexate) 2.5 mg Fr@09 PO Last administered on 10/30/16 08: 29; Admin Dose 2.5 MG; Start 10/30/16 at 09:00 Sulfasalazine (Azulfidine) 500 mg Q8 PO Last administered on 11/02/16 13:08; Admin Dose 500 MG; Start 10/27/16 at 06:00 Miscellaneous Information 1 ea NOTE XX ; Start 10/27/16 at 00:30 Glucose (Glutose) 15 gm Q15M PRN PO DECREASED GLUCOSE; Start 10/27/16 at 00:30 Glucose (Glutose) 22.5 gm Q15M PRN PO DECREASED GLUCOSE; Start 10/27/16 at 00: 30 Dextrose (D50w Syringe) 25 ml Q15M PRN IV DECREASED GLUCOSE; Start 10/27/16 at 00:30 Dextrose (D50w Syringe) 50 ml Q15M PRN IV DECREASED GLUCOSE; Start 10/27/16 at 00:30 Glucagon (Glucagen) 1 mg Q15M PRN IM DECREASED GLUCOSE; Start 10/27/16 at 00:30 Glucose (Glutose) 15 gm Q15M PRN BUCCAL DECREASED GLUCOSE; Start 10/27/16 at 00 :30 Acetaminophen (Tylenol Tab) 500 mg Q4H PRN PO PAIN AND OR ELEVATED TEMP Last administered on 11/02/16 16:43; Admin Dose 500 MG; Start 10/27/16 at 16:30 Acetaminophen/ Hydrocodone Bitart ([place] (5/325)) 1 tab Q4H PRN PO PAIN LEVEL 4 -6 Last administered on 11/02/16 06:21; Admin Dose 1 TAB; Start 10/27/16 at 16: 30 Enoxaparin Sodium (Lovenox) 40 mg DAILY SC Last administered on 11/02/16 08:58 ; Admin Dose 40 MG; Start 10/27/16 at 16:30 Senna (Senokot) 2 tab BID PO Last administered on 11/02/16 08:49; Admin Dose 2 TAB; Start 10/27/16 at 21:00 Bisacodyl (Dulcolax) 5 mg DAILY PO Last administered on 11/02/16 08:49; Admin Dose 5 MG; Start 10/28/16 at 18:00 Meloxicam (Mobic) 15 mg DAILY PO Last administered on 11/02/16 08:49; Admin Dose 15 MG; Start 10/28/16 at 18:30 Lactulose (Enulose) 20 gm Q6 PO Last administered on 11/01/16 17:56; Admin Dose 20 GM; Start 10/29/16 at 18:00 RAE OWENS Nov 02, 2016 17:02
[2016-11-02] MEDS: PANTOPRAZOLE (EC) 40 MG TAB PO SCH (18:07)
[2016-11-02 20:21] VITALS: BP 152/64; RESP 18
[2016-11-03] MEDS: ACCU-CHEK XX SCH (02:00)
[2016-11-03] MEDS: ACETAMINOPHEN 500 MG TAB PO PRN ×3 (03:57→19:44)
[2016-11-03] MEDS: LACTULOSE 30ML CUP PO SCH ×5 (06:00→23:44)
[2016-11-03] MEDS: SULFASALAZINE 500 MG TAB PO SCH ×3 (06:10→19:44)
[2016-11-03] MEDS: PANTOPRAZOLE (EC) 40 MG TAB PO SCH ×2 (06:10→17:51)
[2016-11-03] MEDS: LEVOTHYROXINE 125 MCG TAB PO SCH (06:10)
[2016-11-03 07:00] VITALS: BP 151/81; RESP 20
[2016-11-03] MEDS: INSULIN ASPART [NOVOLOG] 3 ML PEN SC SCH ×4 (07:50→20:58)
[2016-11-03] MEDS: metFORMIN 500 MG TAB PO SCH ×2 (08:53→17:56)
[2016-11-03] MEDS: MELOXICAM 15 MG TAB PO SCH (08:54)
[2016-11-03] MEDS: FOLIC ACID 1 MG TAB PO SCH (08:54)
[2016-11-03] MEDS: HYDROXYCHLOROQUINE 200 MG TAB PO SCH ×2 (08:55→19:44)
[2016-11-03] MEDS: ASCORBIC ACID 500 MG TAB PO SCH (08:56)
[2016-11-03] MEDS: SENNA TAB PO SCH ×2 (08:56→19:44)
[2016-11-03] MEDS: ENOXAPARIN 40 MG/0.4 ML SYG SC SCH (08:59)
[2016-11-03] MEDS: BISACODYL (EC) 5 MG TAB PO SCH (09:00)
[2016-11-03] MEDS: ONDANSETRON 4 MG INJ IV PRN (11:33)
[2016-11-03 15:20] VITALS: BP 142/76; RESP 18
--- NOTE | 2016-11-03 16:48 | PN ---
Date/Time of Note Date/Time of Note DATE: 11/03/16 TIME: 16:46 Assessment/Plan VTE Prophylaxis VTE Prophylaxis Intervention: SCD's Lines/Catheters IV Catheter Type (from Nrs): Saline Lock Urinary Cath still in place: No Assessment/Plan Chief Complaint/Hosp Course Assessment/Plan 1. Compression fracture of the vertebral body of L1. Patient was evaluated by Dr. Paige in orthopedic surgery consultation. Continue OLIVIER brace, continue Mobic. 2. Diabetes. Continue metformin and NovoLog per mild algorithm sliding scale. 3. Rheumatoid arthritis. Continue on methotrexate and Plaquenil. 4. Hypothyroidism. Continue Synthroid. 5. Persistent nausea, Dr. Calhoun is asked to see patient in gastroenterology consultation. Continue Protonix and Zofran as needed for nausea Further recommendations based on clinical course. Plan of care discussed with Dr. Frost. Problems: Subjective 24 Hr Interval Summary Free Text/Dictation Patient's continues to have nausea, had emesis in the morning, poor appetite, able to ambulate using brace. Exam/Review of Systems Vital Signs Vitals Vital Signs Date Time Temp Pulse Resp B/P Pulse Ox O2 Delivery O2 Flow Rate FiO2 11/03/16 15:20 97.9 75 18 142/76 100 Intake and Output 11/02/16 11/02/16 11/03/16 15:00 23:00 07:00 Intake Total 720 ml 800 ml Balance 720 ml 800 ml Exam Constitutional: alert, oriented Psych: no complaints Head: normocephalic Eyes: nl conjunctiva ENMT: nl external ears & nose Neck: non-tender, supple Respiratory: clear to auscultation, normal air movement Cardiovascular: nl pulses, regular rate and rhythm Gastrointestinal: non-tender, soft Genitourinary - Female: nl adnexae Musculoskeletal: nl extremities to inspection Extremities: normal pulses Neurological: FILLING CARRIER II-XII intact Results Result Diagram: 10/31/1642410/31/16 042 Results 24 hrs Laboratory Tests Test 11/02/16 17:38 11/02/16 22:00 11/03/16 07:57 11/03/16 11:43 Bedside Glucose 95 96 87 93 Medications Medications Current Medications Morphine Sulfate (morphine) 2 mg Q4H PRN IV PAIN Last administered on t 08:24; Admin Dose 2 MG; Start 10/27/16 at 00:00 Ondansetron HCl (Zofran Inj) 4 mg Q6H PRN IV NAUSEA AND/OR VOMITING Last administered on 11/03/16 11:33; Admin Dose 4 MG; Start 10/27/16 at 00:00 Diagnostic Test (Pha) (Accu-Chek) 1 ea 02 XX ; Start 10/27/16 at 02:00 Ascorbic Acid (Vitamin C) 500 mg DAILY PO Last administered on 11/03/16 08:56 ; Admin Dose 500 MG; Start 10/27/16 at 09:00 Folic Acid (Folic Acid) 1 mg DAILY PO Last administered on 11/03/16 08:54; Admin Dose 1 MG; Start 10/27/16 at 09:00 Hydroxychloroquine Sulfate (Plaquenil) 200 mg BID PO Last administered on 08:55; Admin Dose 200 MG; Start 10/27/16 at 09:00 Methotrexate (Methotrexate) 2.5 mg Fr@09 PO Last administered on 10/30/16 08: 29; Admin Dose 2.5 MG; Start 10/30/16 at 09:00 Sulfasalazine (Azulfidine) 500 mg Q8 PO Last administered on 11/03/16 14:42; Admin Dose 500 MG; Start 10/27/16 at 06:00 Miscellaneous Information 1 ea NOTE XX ; Start 10/27/16 at 00:30 Glucose (Glutose) 15 gm Q15M PRN PO DECREASED GLUCOSE; Start 10/27/16 at 00:30 Glucose (Glutose) 22.5 gm Q15M PRN PO DECREASED GLUCOSE; Start 10/27/16 at 00: 30 Dextrose (D50w Syringe) 25 ml Q15M PRN IV DECREASED GLUCOSE; Start 10/27/16 at 00:30 Dextrose (D50w Syringe) 50 ml Q15M PRN IV DECREASED GLUCOSE; Start 10/27/16 at 00:30 Glucagon (Glucagen) 1 mg Q15M PRN IM DECREASED GLUCOSE; Start 10/27/16 at 00:30 Glucose (Glutose) 15 gm Q15M PRN BUCCAL DECREASED GLUCOSE; Start 10/27/16 at 00 :30 Acetaminophen (Tylenol Tab) 500 mg Q4H PRN PO PAIN AND OR ELEVATED TEMP Last administered on 11/03/16 08:57; Admin Dose 500 MG; Start 10/27/16 at 16:30 Acetaminophen/ Hydrocodone Bitart ([place] (5/325)) 1 tab Q4H PRN PO PAIN LEVEL 4 -6 Last administered on 11/02/16 06:21; Admin Dose 1 TAB; Start 10/27/16 at 16: 30 Enoxaparin Sodium (Lovenox) 40 mg DAILY SC Last administered on 11/03/16 08:59 ; Admin Dose 40 MG; Start 10/27/16 at 16:30 Senna (Senokot) 2 tab BID PO Last administered on 11/03/16 08:56; Admin Dose 2 TAB; Start 10/27/16 at 21:00 Bisacodyl (Dulcolax) 5 mg DAILY PO Last administered on 11/02/16 08:49; Admin Dose 5 MG; Start 10/28/16 at 18:00 Meloxicam (Mobic) 15 mg DAILY PO Last administered on 11/03/16 08:54; Admin Dose 15 MG; Start 10/28/16 at 18:30 Lactulose (Enulose) 20 gm Q6 PO Last administered on 11/01/16 17:56; Admin Dose 20 GM; Start 10/29/16 at 18:00 Pantoprazole (Protonix Tab) 40 mg BID@18 PO Last administered on 11/03/16 06:10; Admin Dose 40 MG; Start 11/02/16 at 18:00 Ondansetron HCl (Zofran Inj) 4 mg Q4H PRN IV NAUSEA AND/OR VOMITING; Start at 17:00 RAE OWENS Nov 03, 2016 16:48
[2016-11-03 17:46] LABS: ALBUMIN 4.6 g/dl (3.3-4.9); ALBUMIN/GLOBULIN RATIO 1.27; CALCIUM 9.2 mg/dl (8.4-10.2); CREATININE 0.59 mg/dl (0.44-1.00); POTASSIUM 4.5 mmol/L (3.5-5.1); TOTAL PROTEIN 8.2 g/dl (6.1-8.1)
[2016-11-03 21:29] VITALS: BP 182/86; RESP 18
[2016-11-04] MEDS: ACCU-CHEK XX SCH (01:45)
[2016-11-04] MEDS: LEVOTHYROXINE 125 MCG TAB PO SCH (05:05)
[2016-11-04] MEDS: PANTOPRAZOLE (EC) 40 MG TAB PO SCH ×2 (05:06→17:47)
[2016-11-04] MEDS: SULFASALAZINE 500 MG TAB PO SCH ×3 (05:09→20:24)
[2016-11-04] MEDS: ACETAMINOPHEN 500 MG TAB PO PRN ×3 (05:09→20:24)
[2016-11-04 05:16] LABS: ADD SCAN DIFF NO
[2016-11-04] MEDS: LACTULOSE 30ML CUP PO SCH ×4 (05:18→23:01)
[2016-11-04 05:33] LABS: BASOPHILS % 0.5 % (0.0-2.0); EOSINOPHILS # 0.1 10^3/ul (0.0-0.5); EOSINOPHILS % 2.7 % (0.0-7.0); HEMATOCRIT 32.3 % (37.0-47.0); HEMOGLOBIN 11.2 g/dl (12.0-16.0); LYMPHOCYTES # 1.2 10^3/ul (0.8-2.9); LYMPHOCYTES % 28.1 % (15.0-51.0); MEAN CORPUSCULAR HEMOGLOBIN 29.8 pg (29.0-33.0); MEAN CORPUSCULAR HGB CONC 34.7 g/dl (32.0-37.0); MEAN CORPUSCULAR VOLUME 85.9 fl (82.0-101.0); MEAN PLATELET VOLUME 9.5 fl (7.4-10.4); MONOCYTE # 0.5 10^3/ul (0.3-0.9); MONOCYTES % 11.1 % (0.0-11.0); NEUTROPHIL # 2.4 10^3/ul (1.6-7.5); NEUTROPHILS % 57.1 % (39.0-77.0); PLATELET COUNT 266 10^3/UL (140-415); POTASSIUM 3.8 mmol/L (3.5-5.1); RED BLOOD COUNT 3.76 10^6/ul (4.20-5.40); RED CELL DISTRIBUTION WIDTH 12.4 % (11.5-14.5); WHITE BLOOD COUNT 4.1 10^3/ul (4.8-10.8)
[2016-11-04 05:36] LABS: CALCIUM 8.9 mg/dl (8.4-10.2); CREATININE 0.58 mg/dl (0.44-1.00)
[2016-11-04 07:00] VITALS: BP 148/70; RESP 20
[2016-11-04] MEDS: INSULIN ASPART [NOVOLOG] 3 ML PEN SC SCH ×4 (07:50→20:25)
[2016-11-04] MEDS: MELOXICAM 15 MG TAB PO SCH (08:37)
[2016-11-04] MEDS: metFORMIN 500 MG TAB PO SCH ×2 (08:37→17:47)
[2016-11-04] MEDS: BISACODYL (EC) 5 MG TAB PO SCH (08:37)
[2016-11-04] MEDS: FOLIC ACID 1 MG TAB PO SCH (08:37)
[2016-11-04] MEDS: HYDROXYCHLOROQUINE 200 MG TAB PO SCH ×2 (08:37→20:25)
[2016-11-04] MEDS: ASCORBIC ACID 500 MG TAB PO SCH (08:37)
[2016-11-04] MEDS: ENOXAPARIN 40 MG/0.4 ML SYG SC SCH (08:40)
[2016-11-04] MEDS: SENNA TAB PO SCH ×2 (08:42→20:24)
--- NOTE | 2016-11-04 15:53 | PN ---
Date/Time of Note Date/Time of Note DATE: 11/04/16 TIME: 15:51 Assessment/Plan VTE Prophylaxis VTE Prophylaxis Intervention: SCD's Lines/Catheters IV [facility] Type (from [facility] Saline Lock Urinary Cath still in place: No Assessment/Plan Chief Complaint/Hosp Course Assessment/Plan 1. Compression fracture of the vertebral body of L1. Patient was evaluated by Dr. Paige in orthopedic surgery consultation. Continue OLIVIER brace, continue Mobic. 2. Diabetes. Continue metformin and NovoLog per mild algorithm sliding scale. 3. Rheumatoid arthritis. Continue on methotrexate and Plaquenil. 4. Hypothyroidism. Continue Synthroid. 5. Persistent nausea, Dr. Calhoun is following in gastroenterology consultation. Continue Protonix and Zofran as needed for nausea 6. Hyponatremia, Dr. Guerra is asked to see patient in nephrology consultation. Further recommendations based on clinical course. Plan of care discussed with Dr. Frost. Problems: Subjective 24 Hr Interval Summary Free Text/Dictation Patient's complains of nausea however slightly better than yesterday, continues to have poor appetite. Exam/Review of Systems Vital Signs Vitals Vital Signs Date Time Temp Pulse Resp B/P Pulse Ox O2 Delivery O2 Flow Rate FiO2 11/04/16 07:00 97.9 73 20 148/70 100 Intake and Output 11/03/16 11/03/16 11/04/16 15:00 23:00 07:00 Intake Total 900 ml 1200 ml Output Total 1100 ml 1050 ml Balance -200 ml 150 ml Exam Constitutional: alert, oriented Psych: no complaints Head: normocephalic Eyes: nl conjunctiva ENMT: nl external ears & nose Neck: non-tender, supple Respiratory: clear to auscultation, normal air movement Cardiovascular: nl pulses, regular rate and rhythm Gastrointestinal: non-tender, soft Genitourinary - Female: nl adnexae Musculoskeletal: nl extremities to inspection Extremities: normal pulses Neurological: INDUSTRIAL MAINTENANCE INSTRUCTOR II-XII intact Results Result Diagram: 11/04/169 11/04/169 Results 24 hrs Laboratory Tests Test 11/03/16 17:20 11/03/16 17:50 11/03/16 20:57 11/04/16 04:29 Sodium Level 124 L 127 L Potassium Level 4.5 3.8 Chloride Level 90 L 89 L Carbon Dioxide Level 24 27 Anion Gap 15 15 Blood Urea Nitrogen 11 9 Creatinine 0.59 0.58 Glucose Level 95 90 Calcium Level 9.2 8.9 Total Bilirubin 0.0 L Direct Bilirubin 0.00 Indirect Bilirubin 0.0 Aspartate Amino Transf (AST/SGOT) 41 Alanine Aminotransferase (ALT/SGPT) 50 Alkaline Phosphatase 95 Total Protein 8.2 H Albumin 4.6 Globulin 3.60 H Albumin/Globulin Ratio 1.27 Bedside Glucose 122 93 White Blood Count 4.1 L Red Blood Count 3.76 L Hemoglobin 11.2 L Hematocrit 32.3 L Mean Corpuscular Volume 85.9 Mean Corpuscular Hemoglobin 29.8 Mean Corpuscular Hemoglobin Concent 34.7 Red Cell Distribution Width 12.4 Platelet Count 266 Mean Platelet Volume 9.5 Neutrophils % 57.1 Lymphocytes % 28.1 Monocytes % 11.1 H Eosinophils % 2.7 Basophils % 0.5 Nucleated Red Blood Cells % 0.0 Neutrophils # 2.4 Lymphocytes # 1.2 Monocytes # 0.5 Eosinophils # 0.1 Basophils # 0.0 Nucleated Red Blood Cells # 0.0 Test 11/04/16 08:13 11/04/16 12:38 Bedside Glucose 96 107 Medications Medications Current Medications Morphine Sulfate (morphine) 2 mg Q4H PRN IV PAIN Last administered on 08:24; Admin Dose 2 MG; Start 10/27/16 at 00:00 Ondansetron HCl (Zofran Inj) 4 mg Q6H PRN IV NAUSEA AND/OR VOMITING Last administered on 11/03/16 11:33; Admin Dose 4 MG; Start 10/27/16 at 00:00 Diagnostic Test (Pha) (Accu-Chek) 1 ea 02 XX ; Start 10/27/16 at 02:00 Ascorbic Acid (Vitamin C) 500 mg DAILY PO Last administered on 11/04/16 08:37 ; Admin Dose 500 MG; Start 10/27/16 at 09:00 Folic Acid (Folic Acid) 1 mg DAILY PO Last administered on 11/04/16 08:37; Admin Dose 1 MG; Start 10/27/16 at 09:00 Hydroxychloroquine Sulfate (Plaquenil) 200 mg BID PO Last administered on 08:37; Admin Dose 200 MG; Start 10/27/16 at 09:00 Methotrexate (Methotrexate) 2.5 mg Fr@09 PO Last administered on 10/30/16 08: 29; Admin Dose 2.5 MG; Start 10/30/16 at 09:00 Sulfasalazine (Azulfidine) 500 mg Q8 PO Last administered on 11/04/16 14:15; Admin Dose 500 MG; Start 10/27/16 at 06:00 Miscellaneous Information 1 ea NOTE XX ; Start 10/27/16 at 00:30 Glucose (Glutose) 15 gm Q15M PRN PO DECREASED GLUCOSE; Start 10/27/16 at 00:30 Glucose (Glutose) 22.5 gm Q15M PRN PO DECREASED GLUCOSE; Start 10/27/16 at 00: 30 Dextrose (D50w Syringe) 25 ml Q15M PRN IV DECREASED GLUCOSE; Start 10/27/16 at 00:30 Dextrose (D50w Syringe) 50 ml Q15M PRN IV DECREASED GLUCOSE; Start 10/27/16 at 00:30 Glucagon (Glucagen) 1 mg Q15M PRN IM DECREASED GLUCOSE; Start 10/27/16 at 00:30 Glucose (Glutose) 15 gm Q15M PRN BUCCAL DECREASED GLUCOSE; Start 10/27/16 at 00 :30 Acetaminophen (Tylenol Tab) 500 mg Q4H PRN PO PAIN AND OR ELEVATED TEMP Last administered on 11/04/16 14:18; Admin Dose 500 MG; Start 10/27/16 at 16:30 Acetaminophen/ Hydrocodone Bitart ([place] (5/325)) 1 tab Q4H PRN PO PAIN LEVEL 4 -6 Last administered on 11/02/16 06:21; Admin Dose 1 TAB; Start 10/27/16 at 16: 30 Enoxaparin Sodium (Lovenox) 40 mg DAILY SC Last administered on 11/04/16 08:40 ; Admin Dose 40 MG; Start 10/27/16 at 16:30 Senna (Senokot) 2 tab BID PO Last administered on 11/03/16 19:44; Admin Dose 2 TAB; Start 10/27/16 at 21:00 Bisacodyl (Dulcolax) 5 mg DAILY PO Last administered on 11/04/16 08:37; Admin Dose 5 MG; Start 10/28/16 at 18:00 Meloxicam (Mobic) 15 mg DAILY PO Last administered on 11/04/16 08:37; Admin Dose 15 MG; Start 10/28/16 at 18:30 Lactulose (Enulose) 20 gm Q6 PO Last administered on 11/01/16 17:56; Admin Dose 20 GM; Start 10/29/16 at 18:00 Pantoprazole (Protonix Tab) 40 mg BID@,18 PO Last administered on 11/04/16 05:06; Admin Dose 40 MG; Start 11/02/16 at 18:00 Ondansetron HCl (Zofran Inj) 4 mg Q4H PRN IV NAUSEA AND/OR VOMITING Last administered on 11/03/16 20:56; Admin Dose 4 MG; Start 11/02/16 at 17:00 RAE OWENS Nov 04, 2016 15:53
[2016-11-04] MEDS: SOD CHLORIDE 0.9% 1,000 ML IV SCH (17:51)
--- NOTE | 2016-11-04 18:04 | CONS ---
DATE OF ADMISSION: 10/26/2016 DATE OF CONSULTATION: 11/04/2016 TYPE OF CONSULTATION: Nephrology. REASON FOR CONSULTATION: Intractable moderate to severe hyponatremia. HISTORY OF PRESENT ILLNESS: This is a 61-year-old female who has a past medical history of hyperten yonatan, hyperlipidemia, history of rheumatoid arthritis, diabetes mellitus, hypothyroidism, history of diabetes mellitus who presented with a compression fracture of vertebral body of L1. The patient w as evaluated by Orthopedic surgery, Dr. Court Paige. A consultation was recommended to____ and contin ue morphine for pain control. The patient's pain scale has been between 4/10 to 8/10. The patient is noted to have a normal sodium on admission which has been dropped down to 124 and renal has been consulted for moderate to severe hyponatremia. REVIEW OF SYSTEMS: Positive for back pain, nausea. Other review of systems has been obtained and i s negative except what is mentioned in the history of present illness. PAST MEDICAL HISTORY: Notable for hypertension, hyperlipidemia, premature arthritis, diabetes melli tus and hypothyroidism. PAST SURGICAL HISTORY: History of appendectomy, history of hernia repair, history of partial small intestine removal and history of right leg ulcer surgery. SOCIAL HISTORY: No smoking, alcohol or recreational drug use. FAMILY HISTORY: Not available. PHYSICAL EXAMINATION: VITAL SIGNS: Temperature 97.8, heart rate 73, respiration 20, blood pressure 148/70, saturation 100 % on room air. GENERAL: Awake, alert, in no distress. HEENT: Normal. Oropharynx clear. NECK: Supple, no JVD, no lymphadenopathy. LUNGS: Clear to auscultation. No crackles, no wheezes. HEART: S1, S2, with regular rhythm, no murmur. ABDOMEN: Soft, nontender, nondistended. Bowel sounds are present. EXTREMITIES: No clubbing, cyanosis, or edema. BACK: The patient is tender to palpation in the lower lumbosacral area. No midline tenderness. NEUROLOGICAL: Nonfocal, intact. PSYCHIATRIC: Appropriate affect and mood. SKIN: No rash. LABORATORY DATA/DIAGNOSTIC IMAGIN. Sodium 124, potassium 4.6, chloride 90, bicarbonate 24, BUN 11, creatinine 0.5, glucose 95, calc ium 9.2. LFTs are normal. Albumin 4.6. PT 13.2, PTT 35.2, INR 1. 2. WBC 4.1, hemoglobin 11.2, platelet count is 266. Urinalysis shows 2+ ketones, trace leukocyte e sterase. 3. The patient had a lumbar spine x-ray done today that show 50% disk compression fracture of L1 v ertebral body. IMPRESSION: This is a 61-year-old female who presented with L1 compression fractures and found to h ave severe hyponatremia, sodium 124. Renal has been consulted for moderate hyponatremia. 1. She has moderate to severe hyponatremia, unresponsive to the treatment. 2. Acute intractable back pain causing possible syndrome of inappropriate antidiuretic hormone secr etion. 3. Compression fracture of L1 vertebral body, status post orthopedic consult, Dr. Court Paige. 4. History of hypertension. 5. History of hyperlipidemia. 6. History of diabetes mellitus. 7. History of rheumatoid arthritis. PLAN: Thank you, Dr. Frost, for this consultation. I will order the patient's urine studies inc luding a urine sodium, urine osmolality, serum osmolality, TSH, free T4, Cardiolite workup of syndr ome of inappropriate antidiuretic hormone secretion. Plan is to currently continue to combat her pa in control with [place] and morphine IV p.r.n. Continue the other medications for rheumatoid arthriti s. I will give the patient IV fluids NS at 70 mL per hour x1 liter and we will continue to monitor her sodium in the a.m. The patient currently seen in the med/surg floor and she will be followed u p along with her course in the hospital. Total time spent in this patient's evaluation, assessment and plan and communicating with the [facility] staff took more than 90 minutes. Dictated By: ALVARO AGUILAR MD, KP/PAU Conf#: [id number] DID#: [id number]
--- NOTE | 2016-11-04 18:43 | CONS ---
DATE OF ADMISSION: 10/26/2016 DATE OF CONSULTATION: TYPE OF CONSULTATION: Gastroenterology. Dear Dr. Dawson: Thank you for asking me to see Mrs. Wan in GI consultation. HISTORY OF PRESENT ILLNESS: As you know, the patient is a 61-year-old female who was admit vishal to the hospital on 10/27/2016 with the history of a fall. She is recovering from the fall at th is time. She has been experiencing back pain in the past several days because of the fall because o f probably injury to her vertebrae and disks as well. There is evidence of acute L1 fracture. Now, she is complaining of nausea for the past 3 days. However, today she has not been nauseated. No vomiting, no abdominal pain, no diarrhea, no GI bleeding, no constipation. PAST MEDICAL HISTORY: She has medical problems including degenerative disk disease, diabetes, rheum atoid arthritis, and hypothyroidism. MEDICATIONS PRIOR TO THE ADMISSION: Include: 1. Hydrochloroquine sulfate. 2. ____. 3. Methotrexate. 4. Levothyroxine. 5. Metformin. 6. Ascorbic acid. 7. Folic acid. SOCIAL HISTORY: She does not smoke or drink. PHYSICAL EXAMINATION: GENERAL: The patient is a 61-year-old female who at this time she is alert. She is afebri le. She is ambulatory. VITAL SIGNS: Pulse is 82, blood pressure 148/70. CARDIOVASCULAR: Normal heart sounds. RESPIRATORY: Normal breath sounds. ABDOMEN: Shows soft abdomen with no palpable masses, no tenderness, no distention. LABORATORY WORKUP: As of today, sodium is 127, potassium 3.8, BUN 9, creatinine 0.58. Day before y day actually bilirubin 0, AST 41, ALT 50, alk phos 95, globulin 3.6. TSH is not available. IMAGING: No x-rays of the abdomen ordered. CLINICAL IMPRESSION: The patient presenting with history of a fracture of the L1. She has back frank n. She has some nausea. No history of vomiting, no history of GI bleeding, no abdominal pain. Cur rently, the nausea is much better. It is quite possible she may be dealing with a mild degree of di abetic gastroparesis. She could have gastritis, esophagitis. She has no acute abdomen. No evidence of acute pancreatitis at this time. PLAN: I would recommend continue to watch her, the way we are doing. If she continues to have any nausea or vomiting at that time, I would recommend upper endoscopy as further workup. At this time, I would recommend continue present management. Once again, thank you for this consultation. Dictated By: ALEISHA RODRIGUEZ/PAU Conf#: [id number] DID#: [id number] CC: DENNIS DAWSON MD; ALEISHA MARTIN MD;*EndCC*
[2016-11-04 20:02] VITALS: BP 134/65; RESP 20
[2016-11-05] MEDS: ACCU-CHEK XX SCH (00:50)
[2016-11-05] MEDS: ACETAMINOPHEN 500 MG TAB PO PRN ×2 (04:58→20:47)
[2016-11-05] MEDS: LEVOTHYROXINE 125 MCG TAB PO SCH (04:58)
[2016-11-05] MEDS: SULFASALAZINE 500 MG TAB PO SCH ×3 (04:58→20:42)
[2016-11-05] MEDS: PANTOPRAZOLE (EC) 40 MG TAB PO SCH ×2 (04:58→18:47)
[2016-11-05] MEDS: LACTULOSE 30ML CUP PO SCH ×3 (05:01→18:00)
[2016-11-05 05:21] LABS: POTASSIUM 4.2 mmol/L (3.5-5.1)
[2016-11-05 05:24] LABS: CREATININE 0.6 mg/dl (0.44-1.00)
[2016-11-05 06:24] LABS: THYROID STIMULATING HORMONE 3.03 MIU/L (0.465-4.680)
[2016-11-05] MEDS: INSULIN ASPART [NOVOLOG] 3 ML PEN SC SCH ×4 (07:50→20:42)
[2016-11-05] MEDS: SOD CHLORIDE 0.9% 1,000 ML IV SCH ×2 (08:18→22:36)
[2016-11-05 08:53] VITALS: BP 130/70; RESP 19
[2016-11-05] MEDS: BISACODYL (EC) 5 MG TAB PO SCH (09:00)
[2016-11-05] MEDS: SENNA TAB PO SCH ×2 (09:00→20:42)
[2016-11-05] MEDS: metFORMIN 500 MG TAB PO SCH ×2 (09:42→18:47)
[2016-11-05] MEDS: FOLIC ACID 1 MG TAB PO SCH (09:43)
[2016-11-05] MEDS: MELOXICAM 15 MG TAB PO SCH (09:43)
[2016-11-05] MEDS: ASCORBIC ACID 500 MG TAB PO SCH (09:43)
[2016-11-05] MEDS: HYDROXYCHLOROQUINE 200 MG TAB PO SCH ×2 (09:43→20:42)
[2016-11-05] MEDS: ENOXAPARIN 40 MG/0.4 ML SYG SC SCH (09:46)
--- NOTE | 2016-11-05 12:42 | CONS ---
Date/Time of Note Date/Time of Note DATE: 11/05/16 TIME: 12:38 Assessment/Plan Assessment/Plan Additional Assessment/Plan 1. Moderate to severe hyponatremia, unresponsive to the treatment. 2. Acute intractable back pain causing possible syndrome of inappropriate antidiuretic hormone secretion. 3. Compression fracture of L1 vertebral body, status post orthopedic consult, Dr. Court Paige. 4. History of hypertension. 5. History of hyperlipidemia. 6. History of diabetes mellitus. 7. History of rheumatoid arthritis. PLAN: S/p 1 Liter NS Na improved to 130- will give another 1 liter NS IVF Pain control will follow up Consultation Date/Type/Reason Admit Date/Time Oct 26, 2016 at 20:52 Initial Consult Date October Type of Consultation: NEPHROLOGY Reason for Consultation Severe Hyponatremia Referring Provider: DENNIS DAWSON MD 24 HR Interval Summary Free Text/Dictation Na improved to 130, doing better, BP stable Exam/Review of Systems Vital Signs Vitals Vital Signs Date Time Temp Pulse Resp B/P Pulse Ox O2 Delivery O2 Flow Rate FiO2 11/05/16 08:53 98.6 76 19 130/70 99 Intake and Output 11/04/16 11/04/16 11/05/16 15:00 23:00 07:00 Intake Total 770 ml Balance 770 ml Exam GENERAL: Awake, alert, in no distress. HEENT: Normal. Oropharynx clear. NECK: Supple, no JVD, no lymphadenopathy. LUNGS: Clear to auscultation. No crackles, no wheezes. HEART: S1, S2, with regular rhythm, no murmur. ABDOMEN: Soft, nontender, nondistended. Bowel sounds are present. EXTREMITIES: No clubbing, cyanosis, or edema. BACK: The patient is tender to palpation in the lower lumbosacral area. No midline tenderness. NEUROLOGICAL: Nonfocal, intact. PSYCHIATRIC: Appropriate affect and mood. SKIN: No rash. Results Result Diagram: 11/04/16 0429 11/05/16 0436 Results 24 hrs Laboratory Tests Test 11/04/16 17:35 11/04/16 20:23 11/04/16 23:20 11/05/16 04:36 Bedside Glucose 125 103 Urine Osmolality 233 L Urine Random Sodium 33 Sodium Level 130 L Potassium Level 4.2 Chloride Level 93 L Carbon Dioxide Level 26 Anion Gap 15 Blood Urea Nitrogen 7 Creatinine 0.60 Glucose Level 86 Osmolality 268 L Calcium Level 9.0 Thyroid Stimulating Hormone (TSH) 3.030 Free Thyroxine 1.85 H Random Cortisol 10.2 Test 11/05/16 08:31 11/05/16 12:25 Bedside Glucose 103 94 Medications Medications Current Medications Morphine Sulfate (morphine) 2 mg Q4H PRN IV PAIN Last administered on 08:24; Admin Dose 2 MG; Start 10/27/16 at 00:00 Ondansetron HCl (Zofran Inj) 4 mg Q6H PRN IV NAUSEA AND/OR VOMITING Last administered on 11/03/16 11:33; Admin Dose 4 MG; Start 10/27/16 at 00:00 Diagnostic Test (Pha) (Accu-Chek) 1 ea 02 XX ; Start 10/27/16 at 02:00 Ascorbic Acid (Vitamin C) 500 mg DAILY PO Last administered on 11/05/16 09:43 ; Admin Dose 500 MG; Start 10/27/16 at 09:00 Folic Acid (Folic Acid) 1 mg DAILY PO Last administered on 11/05/16 09:43; Admin Dose 1 MG; Start 10/27/16 at 09:00 Hydroxychloroquine Sulfate (Plaquenil) 200 mg BID PO Last administered on 09:43; Admin Dose 200 MG; Start 10/27/16 at 09:00 Methotrexate (Methotrexate) 2.5 mg Fr@09 PO Last administered on 10/30/16 08: 29; Admin Dose 2.5 MG; Start 10/30/16 at 09:00 Sulfasalazine (Azulfidine) 500 mg Q8 PO Last administered on 11/05/16 04:58; Admin Dose 500 MG; Start 10/27/16 at 06:00 Miscellaneous Information 1 ea NOTE XX ; Start 10/27/16 at 00:30 Glucose (Glutose) 15 gm Q15M PRN PO DECREASED GLUCOSE; Start 10/27/16 at 00:30 Glucose (Glutose) 22.5 gm Q15M PRN PO DECREASED GLUCOSE; Start 10/27/16 at 00: 30 Dextrose (D50w Syringe) 25 ml Q15M PRN IV DECREASED GLUCOSE; Start 10/27/16 at 00:30 Dextrose (D50w Syringe) 50 ml Q15M PRN IV DECREASED GLUCOSE; Start 10/27/16 at 00:30 Glucagon (Glucagen) 1 mg Q15M PRN IM DECREASED GLUCOSE; Start 10/27/16 at 00:30 Glucose (Glutose) 15 gm Q15M PRN BUCCAL DECREASED GLUCOSE; Start 10/27/16 at 00 :30 Acetaminophen (Tylenol Tab) 500 mg Q4H PRN PO PAIN AND OR ELEVATED TEMP Last administered on 11/05/16 04:58; Admin Dose 500 MG; Start 10/27/16 at 16:30 Acetaminophen/ Hydrocodone Bitart ([place] (5/325)) 1 tab Q4H PRN PO PAIN LEVEL 4 -6 Last administered on 11/02/16 06:21; Admin Dose 1 TAB; Start 10/27/16 at 16: 30 Enoxaparin Sodium (Lovenox) 40 mg DAILY SC Last administered on 11/05/16 09:46 ; Admin Dose 40 MG; Start 10/27/16 at 16:30 Senna (Senokot) 2 tab BID PO Last administered on 11/04/16 20:24; Admin Dose 2 TAB; Start 10/27/16 at 21:00 Bisacodyl (Dulcolax) 5 mg DAILY PO Last administered on 11/04/16 08:37; Admin Dose 5 MG; Start 10/28/16 at 18:00 Meloxicam (Mobic) 15 mg DAILY PO Last administered on 11/05/16 09:43; Admin Dose 15 MG; Start 10/28/16 at 18:30 Lactulose (Enulose) 20 gm Q6 PO Last administered on 11/01/16 17:56; Admin Dose 20 GM; Start 10/29/16 at 18:00 Pantoprazole (Protonix Tab) 40 mg BID@06,18 PO Last administered on 11/05/16 04:58; Admin Dose 40 MG; Start 11/02/16 at 18:00 Ondansetron HCl 4 mg 4 mg Q4H PRN IV NAUSEA AND/OR VOMITING Last administered on 11/03/16 20:56; Admin Dose 4 MG; Start 11/02/16 at 17:00 Sodium Chloride (NS) 1,000 ml @ 70 mls/hr [id number] IV Last administered on 11/04 17:51; Admin Dose 70 MLS/HR; Start 11/04/16 at 18:00 ALVARO AGUILAR MD Nov 05, 2016 12:42
[2016-11-05] MEDS ORDERED: SOD CHLORIDE 0.9% 1,000 ML IV SCH (13:00)
[2016-11-05 19:51] VITALS: BP 128/70; RESP 18
[2016-11-06] MEDS: ACCU-CHEK XX SCH (01:41)
[2016-11-06] MEDS: LACTULOSE 30ML CUP PO SCH ×4 (05:12→17:19)
[2016-11-06] MEDS: PANTOPRAZOLE (EC) 40 MG TAB PO SCH ×2 (05:12→17:46)
[2016-11-06] MEDS: SULFASALAZINE 500 MG TAB PO SCH ×2 (05:12→14:19)
[2016-11-06] MEDS: ACETAMINOPHEN 500 MG TAB PO PRN ×2 (05:16→14:20)
[2016-11-06 06:55] LABS: CALCIUM 9.1 mg/dl (8.4-10.2); CREATININE 0.55 mg/dl (0.44-1.00); POTASSIUM 4.4 mmol/L (3.5-5.1)
[2016-11-06] MEDS: INSULIN ASPART [NOVOLOG] 3 ML PEN SC SCH ×3 (07:50→17:18)
[2016-11-06 08:00] VITALS: BP 118/61; RESP 18
[2016-11-06] MEDS: LEVOTHYROXINE 125 MCG TAB PO SCH (08:46)
[2016-11-06] MEDS: ASCORBIC ACID 500 MG TAB PO SCH (08:46)
[2016-11-06] MEDS: BISACODYL (EC) 5 MG TAB PO SCH (08:46)
[2016-11-06] MEDS: FOLIC ACID 1 MG TAB PO SCH (08:46)
[2016-11-06] MEDS: SENNA TAB PO SCH (08:46)
[2016-11-06] MEDS: MELOXICAM 15 MG TAB PO SCH (08:46)
[2016-11-06] MEDS: ENOXAPARIN 40 MG/0.4 ML SYG SC SCH (08:48)
[2016-11-06] MEDS: HYDROXYCHLOROQUINE 200 MG TAB PO SCH (08:56)
[2016-11-06] MEDS: metFORMIN 500 MG TAB PO SCH (08:56)
--- NOTE | 2016-11-06 10:28 | CONS ---
Date/Time of Note Date/Time of Note DATE: 11/06/16 TIME: 10:26 Assessment/Plan Assessment/Plan Additional Assessment/Plan 1. Moderate to severe hyponatremia, unresponsive to the treatment. 2. Acute intractable back pain causing possible syndrome of inappropriate antidiuretic hormone secretion. 3. Compression fracture of L1 vertebral body, status post orthopedic consult, Dr. Court Paige. 4. History of hypertension. 5. History of hyperlipidemia. 6. History of diabetes mellitus. 7. History of rheumatoid arthritis. PLAN: S/p 2 Liter NS Na 131, no plan for IVF now, will give Na chloride tablet 1 gram PO BID Pain control will follow up monitor Na Consultation Date/Type/Reason Admit Date/Time Oct 26, 2016 at 20:52 Initial Consult Date October Type of Consultation: NEPHROLOGY Reason for Consultation Hyponatremia Referring Provider: DENNIS DAWSON MD 24 HR Interval Summary Free Text/Dictation Na 131, S/p 2 liter IVF so far, BP stable, pain controlled Exam/Review of Systems Vital Signs Vitals Vital Signs Date Time Temp Pulse Resp B/P Pulse Ox O2 Delivery O2 Flow Rate FiO2 11/06/16 08:00 98.2 77 18 118/61 98 Intake and Output 11/05/16 11/05/16 11/06/16 15:00 23:00 07:00 Intake Total 330 ml 890 ml 1700 ml Balance 330 ml 890 ml 1700 ml Exam GENERAL: Awake, alert, in no distress. HEENT: Normal. Oropharynx clear. NECK: Supple, no JVD, no lymphadenopathy. LUNGS: Clear to auscultation. No crackles, no wheezes. HEART: S1, S2, with regular rhythm, no murmur. ABDOMEN: Soft, nontender, nondistended. Bowel sounds are present. EXTREMITIES: No clubbing, cyanosis, or edema. BACK: The patient is tender to palpation in the lower lumbosacral area. No midline tenderness. NEUROLOGICAL: Nonfocal, intact. PSYCHIATRIC: Appropriate affect and mood. SKIN: No rash. Results Result Diagram: 11/04/16 0429 11/06/16 0441 Results 24 hrs Laboratory Tests Test 11/05/16 12:25 11/05/16 17:25 11/05/16 20:08 11/06/16 04:41 Bedside Glucose 94 94 85 Sodium Level 131 L Potassium Level 4.4 Chloride Level 99 Carbon Dioxide Level 26 Anion Gap 10 # Blood Urea Nitrogen 8 Creatinine 0.55 Glucose Level 91 Calcium Level 9.1 Test 11/06/16 07:57 Bedside Glucose 89 Medications Medications Current Medications Morphine Sulfate (morphine) 2 mg Q4H PRN IV PAIN Last administered on 08:24; Admin Dose 2 MG; Start 10/27/16 at 00:00 Ondansetron HCl (Zofran Inj) 4 mg Q6H PRN IV NAUSEA AND/OR VOMITING Last administered on 11/03/16 11:33; Admin Dose 4 MG; Start 10/27/16 at 00:00 Diagnostic Test (Pha) (Accu-Chek) 1 ea 02 XX ; Start 10/27/16 at 02:00 Ascorbic Acid (Vitamin C) 500 mg DAILY PO Last administered on 11/06/16 08:46 ; Admin Dose 500 MG; Start 10/27/16 at 09:00 Folic Acid (Folic Acid) 1 mg DAILY PO Last administered on 11/06/16 08:46; Admin Dose 1 MG; Start 10/27/16 at 09:00 Hydroxychloroquine Sulfate (Plaquenil) 200 mg BID PO Last administered on 08:56; Admin Dose 200 MG; Start 10/27/16 at 09:00 Methotrexate (Methotrexate) 2.5 mg Fr@09 PO Last administered on 10/30/16 08: 29; Admin Dose 2.5 MG; Start 10/30/16 at 09:00 Sulfasalazine (Azulfidine) 500 mg Q8 PO Last administered on 11/06/16 05:12; Admin Dose 500 MG; Start 10/27/16 at 06:00 Miscellaneous Information 1 ea NOTE XX ; Start 10/27/16 at 00:30 Glucose (Glutose) 15 gm Q15M PRN PO DECREASED GLUCOSE; Start 10/27/16 at 00:30 Glucose (Glutose) 22.5 gm Q15M PRN PO DECREASED GLUCOSE; Start 10/27/16 at 00: 30 Dextrose (D50w Syringe) 25 ml Q15M PRN IV DECREASED GLUCOSE; Start 10/27/16 at 00:30 Dextrose (D50w Syringe) 50 ml Q15M PRN IV DECREASED GLUCOSE; Start 10/27/16 at 00:30 Glucagon (Glucagen) 1 mg Q15M PRN IM DECREASED GLUCOSE; Start 10/27/16 at 00:30 Glucose (Glutose) 15 gm Q15M PRN BUCCAL DECREASED GLUCOSE; Start 10/27/16 at 00 :30 Acetaminophen (Tylenol Tab) 500 mg Q4H PRN PO PAIN AND OR ELEVATED TEMP Last administered on 11/06/16 05:16; Admin Dose 500 MG; Start 10/27/16 at 16:30 Acetaminophen/ Hydrocodone Bitart ([place] (5/325)) 1 tab Q4H PRN PO PAIN LEVEL 4 -6 Last administered on 11/02/16 06:21; Admin Dose 1 TAB; Start 10/27/16 at 16: 30 Enoxaparin Sodium (Lovenox) 40 mg DAILY SC Last administered on 11/06/16 08:48 ; Admin Dose 40 MG; Start 10/27/16 at 16:30 Senna (Senokot) 2 tab BID PO Last administered on 11/06/16 08:46; Admin Dose 2 TAB; Start 10/27/16 at 21:00 Bisacodyl (Dulcolax) 5 mg DAILY PO Last administered on 11/06/16 08:46; Admin Dose 5 MG; Start 10/28/16 at 18:00 Meloxicam (Mobic) 15 mg DAILY PO Last administered on 11/06/16 08:46; Admin Dose 15 MG; Start 10/28/16 at 18:30 Lactulose (Enulose) 20 gm Q6 PO Last administered on 11/01/16 17:56; Admin Dose 20 GM; Start 10/29/16 at 18:00 Pantoprazole (Protonix Tab) 40 mg BID@06,18 PO Last administered on 11/06/16 05:12; Admin Dose 40 MG; Start 11/02/16 at 18:00 Ondansetron HCl 4 mg 4 mg Q4H PRN IV NAUSEA AND/OR VOMITING Last administered on 11/03/16 20:56; Admin Dose 4 MG; Start 11/02/16 at 17:00 Sodium Chloride (NS) 1,000 ml @ 70 mls/hr [id number] IV Last administered on 11/04 17:51; Admin Dose 70 MLS/HR; Start 11/04/16 at 18:00 ALVARO AGUILAR MD Nov 06, 2016 10:28
[2016-11-06] MEDS: METHOTREXATE 2.5 MG TAB PO SCH (11:25)
[2016-11-06] MEDS ORDERED: SODIUM CHLORIDE 1 GM TAB PO ONE (11:30)
[2016-11-06] MEDS ORDERED: metFORMIN 500 MG TAB PO SCH (17:55)
[2016-11-06] MEDS ORDERED: MELO-110 PO (18:22)
[2016-11-06] MEDS ORDERED: PANT40TA4 PO (18:22)
[2016-11-06] MEDS ORDERED: SODI100010 PO (18:22)
[2016-11-06] MEDS ORDERED: SODIUM CHLORIDE 1 GM TAB PO SCH (21:00)
== END 2016-11-06 20:00 | disposition home or self-care (01) | DRG 552 ==
LOC: FTE 15:19 → MS1 20:52
PROVIDERS: ADMIT Internal Medicine; ATTEND Internal Medicine
DX: S32.019A Unspecified fracture of first lumbar vertebra, initial encounter for closed fracture (principal); E22.2 Syndrome of inappropriate secretion of antidiuretic hormone; K31.84 Gastroparesis; E87.1 Hypo-osmolality and hyponatremia; E11.43 Type 2 diabetes mellitus with diabetic autonomic (poly)neuropathy; I10 Essential (primary) hypertension; W18.30XA Fall on same level, unspecified, initial encounter; M47.9 Spondylosis, unspecified; M06.9 Rheumatoid arthritis, unspecified; M47.896 Other spondylosis, lumbar region; E03.9 Hypothyroidism, unspecified; R11.0 Nausea; Y93.89 Activity, other specified; Y92.9 Unspecified place or not applicable
CPT/HCPCS: 36415; 71010; 72100; 72131; 72148; 72220; 80048; 80053; 81003; 82533; 82962; 83036; 83930; 83935; 84300; 84439; 84443; 84484; 85025; 85610; 85730; 86850; 86900; 86901; 93005; 96372; 97116; 97162; 97530; J1650; J1815; J1885; J2270; J2405; J7030; L0472

== ENCOUNTER 2019-01-12 11:31 | Emergency (ER) | payer OTHER ==
[~2019-01-12] VITALS: Ht 157.5 cm; Wt 70.0 kg
[~2019-01-12 11:31] MED LIST changes: +ASCO500C7 PO; +FOLI-49 PO; +HYDR200T39 PO; +LEVO125T7 PO; -LEVO125T75 PO; -LISI20TA11 PO; +MELO15TA30 PO; -METF1000 PO; +METF100010 PO; +PANT40TA4 PO; +SULF500T45 PO; +[UNRECOGNIZED DRUG - CODE] PO
[2019-01-12 11:34] VITALS: Ht 157.5 cm; Wt 70.0 kg
[2019-01-12] MEDS ORDERED: SOD CHLORIDE 0.9% 500 ML IV STA (11:48)
[2019-01-12] MEDS ORDERED: LEVO25TA6 PO (13:38)
[2019-01-12] MEDS ORDERED: METF100010 PO (13:38)
[2019-01-12] MEDS ORDERED: FOLI-49 PO (13:39)
[2019-01-12] MEDS ORDERED: SULF500T5 PO (13:40)
[2019-01-12] MEDS ORDERED: HYDR200T39 PO (13:42)
[2019-01-12] MEDS ORDERED: MET25 PO (13:44)
[2019-01-12] MEDS ORDERED: PRAV20TA63 PO (13:44)
[2019-01-12] MEDS ORDERED: TERB250T13 PO (13:46)
--- NOTE | 2019-01-12 13:51 | ERD ---
ER Documentation Chief Complaint Chief Complaint sent by pcp for abnormal sodium level and high bp; headache HPI Patient is a 63-year-old female with hypertension and diabetes who presents for low sodium and high blood pressure. She was sent by her primary doctor for the low sodium levels that were checked as an outpatient. Her test on December 29 which was the most recent sodium level was 129. She has chills but no fevers. She h as a gradual onset headache and feels tired. She is urinating normally. She does have a primary doctor. ROS All systems reviewed and are negative except as per history of present illness. Medications Home Meds Reported Medications Terbinafine Hcl* (Terbinafine Hcl*) 250 Mg Tablet, 250 MG PO DAILY, TAB FOR 10 DAYS, START DATE 01/12/19 01/12/19 Pravastatin Sodium* (Pravastatin Sodium*) 20 Mg Tablet, 20 MG PO HS, TAB 01/12/19 Methotrexate* (Methotrexate*) 2.5 Mg Tab, 12.5 MG PO Q7D, TAB 01/12/19 Hydroxychloroquine Sulfate* (Hydroxychloroquine Sulfate*) 200 Mg Tablet, 200 MG PO BID, TAB 01/12/19 Sulfasalazine* (Sulfazine*) 500 Mg Tablet, 1500 MG PO BID, TAB 01/12/19 Folic Acid* (Folic Acid*) 1 Mg Tablet, 1 MG PO DAILY, TAB 01/12/19 Metformin Hcl* (Metformin Hcl*) 1,000 Mg Tablet, 1000 MG PO WITH BREAKFAST DINN E, #60 TAB 01/12/19 Levothyroxine Sodium* (Levothyroxine Sodium*) 25 Mcg Tablet, 25 MCG PO BEFORE BREAKFAST, #30 TAB 01/12/19 Discontinued Reported Medications Sulfasalazine (Azulfidine) 500 Mg Tab, 500 MG PO Q8, #90 TAB 10/26/16 Hydroxychloroquine Sulfate* (Hydroxychloroquine Sulfate*) 200 Mg Tablet, 200 MG PO BID, TAB 10/26/16 Ascorbic Acid* (Vitamin C*) 500 Mg Capsule.sa, 500 MG PO DAILY, CAP 10/26/16 Folic Acid* (Folic Acid*) 1 Mg Tablet, 1 MG PO DAILY, TAB 10/26/16 Metformin Hcl* (Metformin Hcl*) 1,000 Mg Tablet, 1000 MG PO BID, #30 TAB 10/21/15 Methotrexate* (Methotrexate*) 2.5 Mg Tab, 2.5 MG PO ONCE A WEEK , TAB 01/21/15 Levothyroxine Sodium* (Levothyroxine Sodium*) 125 Mcg Tablet, 125 MCG PO AC BREAKFAST, TAB 01/21/15 Discontinued Scripts Pantoprazole* (Pantoprazole*) 40 Mg Tablet.dr, 40 MG PO DAILY for 30 Days Prov:WILLVINHMARILYNRAE 11/06/16 Sodium Chloride (Sodium Chloride) 1,000 Mg Tablet.po, 1 GM PO BID for 7 Days, TAB Prov:WILLJEANNETTE DUMONTA 11/06/16 Meloxicam* (Mobic*) 15 Mg Tablet, 15 MG PO DAILY for 30 Days, TAB Prov:WILLJEANNETTE DUMONTA 11/06/16 Allergies Allergies: Coded Allergies: No Known Allergy (Unverified , 01/12/19) PMhx/Soc History of Surgery: Yes (Appendectomy, hernia repair, partial small intestine removed, ulcer sx R le) Anesthesia Reaction: No Hx Neurological Disorder: No Hx Respiratory Disorders: No Hx Cardiac Disorders: Yes (HTN ) Hx Psychiatric Problems: No Hx Miscellaneous Medical Probl: Yes (HTN, DM, RA, hypothyroid) Hx Alcohol Use: No Hx Substance Use: No Hx Tobacco Use: No Smoking Status: Never smoker FmHx Family History: diabetes Physical Exam Vitals Vital Signs Date Temp Pulse Resp B/P (MAP) Pulse Ox O2 O2 Flow FiO2 Time Delivery Rate 01/12/19 75 18 131/60 99 Room Air 13:25 (83) 01/12/19 98.0 81 18 146/75 99 Room Air 12:14 (98) 01/12/19 98.2 98 20 185/88 99 11:34 (120) Physical Exam Const: No acute distress Head: Atraumatic Eyes: Normal Conjunctiva ENT: Normal External Ears, Nose and Mouth. Neck: Full range of motion. No meningismus. Resp: Clear to auscultation bilaterally Cardio: Regular rate and rhythm, no murmurs Abd: Soft, non tender, non distended. Normal bowel sounds Skin: No petechiae or rashes Back: No midline or flank tenderness Ext: No cyanosis, or edema Neur: Awake and alert, cranial nerves II through XII are intact, strength is 5 out of 5 in all 4 extremities, no slurred speech Psych: Normal Mood and Affect Result Diagram: 01/12/19 1205 01/12/19 1205 Results 24 hrs Laboratory Tests Test 01/12/19 12:04 01/12/19 12:05 Urine Color YELLOW Urine Clarity CLEAR Urine pH 6.0 Urine Specific [place] 1.006 Urine Ketones NEGATIVE mg/dL Urine Nitrite NEGATIVE mg/dL Urine Bilirubin NEGATIVE mg/dL Urine Urobilinogen NEGATIVE mg/dL Urine Leukocyte Esterase TRACE Amee/ul Urine Microscopic RBC 1 /HPF Urine Microscopic WBC 3 /HPF Urine Squamous Epithelial Cells FEW /HPF Urine Bacteria MODERATE /HPF Urine Hemoglobin NEGATIVE mg/dL Urine Glucose NEGATIVE mg/dL Urine Total Protein NEGATIVE mg/dl White Blood Count 5.1 10^3/ul Red Blood Count 4.20 10^6/ul Hemoglobin 12.3 g/dl Hematocrit 37.0 % Mean Corpuscular Volume 88.1 fl Mean Corpuscular Hemoglobin 29.3 pg Mean Corpuscular Hemoglobin Concent 33.2 g/dl Red Cell Distribution Width 13.6 % Platelet Count 302 10^3/UL Mean Platelet Volume 9.4 fl Immature Granulocytes % 0.200 % Neutrophils % 72.0 % Lymphocytes % 17.3 % Monocytes % 7.7 % Eosinophils % 2.4 % Basophils % 0.4 % Nucleated Red Blood Cells % 0.0 /100WBC Immature Granulocytes # 0.010 10^3/ul Neutrophils # 3.7 10^3/ul Lymphocytes # 0.9 10^3/ul Monocytes # 0.4 10^3/ul Eosinophils # 0.1 10^3/ul Basophils # 0.0 10^3/ul Nucleated Red Blood Cells # 0.0 10^3/ul Sodium Level 140 mmol/L Potassium Level 3.9 mmol/L Chloride Level 104 mmol/L Carbon Dioxide Level 23 mmol/L Anion Gap 13 Blood Urea Nitrogen 10 mg/dl Creatinine 0.57 mg/dl Est Glomerular Filtrat Rate mL/min > 60 mL/min Glucose Level 111 mg/dl Calcium Level 9.6 mg/dl Troponin I < 0.012 ng/ml Current Medications Medications Dose Sig/Colleen Start Time Status Last (Trade) Ordered Route PRN Stop Time Admin Dose Reason Admin Sodium 500 ml @ Q1H STAT 01/12/19 DC 01/12/19 Chloride 500 mls/hr IV 11:48 12:23 01/12/19 12:47 Procedures/MDM EKG read by me: Rate/Rhythm: Regular rate and rhythm at a rate of 85 Intervals: Normal Impression: No evidence of ischemia or arrhythmia Patient is a 63-year-old female who presents with low sodium and high blood pressure. Her sodium level today was 140 which is normal. Blood pressure is elevated but she has a history of chronic blood pressure. I doubt hypertensive emergency. I doubt stroke or other serious etiology. Her results were given to her and the patient will be discharged. She can follow-up closely with her pr imary doctor within 1 week. Departure Diagnosis: Primary Impression: Hypertension Hypertension type: essential hypertension Qualified Codes: I10 - Essential (primary) hypertension Condition: Fair Patient Instructions: High Blood Pressure (Hypertension) Referrals: Your doctor Additional Instructions: Call your primary care doctor TOMORROW for an appointment during the next 1 WEEK.Tell the legal secretary that you were referred from this facility.See the doctor sooner or return here if your condition worsens before your appointment time. JEANNE SANTIAGO MD Jan 12, 2019 13:50
[2019-01-12 14:18] VITALS: BP 133/70; PULSE 73; RESP 18
== END 2019-01-12 14:20 | disposition home or self-care (01) ==
LOC: E/R 11:31
DX: I10 Essential (primary) hypertension (principal); E11.9 Type 2 diabetes mellitus without complications; Z79.84 Long term (current) use of oral hypoglycemic drugs
CPT/HCPCS: 36415; 80048; 81001; 84484; 85025; 93005; J7040; Z7502